=== PATIENT | female | born 1940 | race Caucasian/White ===

== ENCOUNTER 2020-12-21 12:49 | Inpatient (IN) ==
[2020-12-21 11:41] LABS: BASOPHILS # (AUTO) 0.1 X10^3/uL (0.0-0.1); BASOPHILS % (AUTO) 0.9 % (0.2-1.0); EOSINOPHILS # (AUTO) 0.1 x10^3/uL (0.0-0.2); HEMOGLOBIN 11.9 g/dL (12.0-16.0); LYMPHOCYTES % (AUTO) 24.8 % (21.0-51.0); MEAN CORPUSCULAR HEMOGLOBIN 26.1 pg (27.0-34.0); MEAN CORPUSCULAR HGB CONC 32.3 g/dL (33.0-35.0); MEAN CORPUSCULAR VOLUME 80.8 fL (80.0-100.0); MEAN PLATELET VOLUME 9.6 fL (7.4-11.0); MONOCYTES # (AUTO) 0.8 x10^3/uL (0.3-0.8); MONOCYTES % (AUTO) 9.4 % (0.0-13.0); NEUTROPHILS # (AUTO) 5.2 x10^3/uL (2.2-4.8); NEUTROPHILS % (AUTO) 63.9 % (42.0-75.0); PLATELET COUNT 250 X10^3/uL (150.0-450.0); RED BLOOD COUNT 4.58 X10^6/uL (3.5-5.4); RED CELL DISTRIBUTION WIDTH 15.7 % (11.6-16.5); WHITE BLOOD COUNT 8.1 X10^3/uL (3.6-10.0)
[2020-12-21 11:59] LABS: ALANINE AMINOTRANSFERASE 10 Units/L (12-78); ALBUMIN 2.8 g/dL (3.4-5.0); ALKALINE PHOSPHATASE 106 Units/L (46-116); ASPARTATE AMINO TRANSFERASE 11 Units/L (15-37); BLOOD UREA NITROGEN 26 mg/dL (7-18); CALCIUM 8.7 mg/dL (8.5-10.1); CARBON DIOXIDE 33.8 mmol/L (21-32); CHLORIDE 96 mmol/L (98-107); COR CA(FOR HYPOALB) 9.7 mg/dL (8.5-10.1); COR NA(FOR HYPERGLY) 143 mmol/L (136-145); SODIUM 136 mmol/L (136-145); TOTAL PROTEIN 7.6 g/dL (6.4-8.2); eGFR NON BLACK RACES 57 (>60)
--- NOTE | 2020-12-21 13:23 | DR.PEXTPAI ---
HPI Time seen Time Seen by Provider: 12/21/20 13:11 PCP Primary Care Physician: HIMA Complaint/Symptoms Chief Complaint:: PT. WAS BROUGHT FROM THE PRE OP STAFF NURSE Libby JUNIOR RN. PT. WAS HERE AN OUT PATIENT FOR VASCULAR SURGERY TO RIGHT LEG. DR. RABAGO ORDERED CBC AND CMP PRIOR TO PROCEDURE AND PT. HAD ABNORMAL LABS SO PT. WAS SENT TO THE ER FOR FURTHER EVALUATION. PT. HAS A WOUND TO RIGHT HEEL. THE BACK PART OF PT'S RIGHT GREAT TOE IS NECROTIC. PT. HAS SCATTERED AREAS OF CONCERN NOTED TO RIGHT FOOT. PT. C/O BILATERAL FOOT PAIN. PT. HAD A PROCEDURE TO RIGHT LEG PER DR. RABAGO ON 09/21/20. PAINTER SKI EDGE STATES PT. WILL NOT LEAVE A DRESSING TO RIGHT FOOT AND WILL NOT LEAVE WOUND ALONE. PAINTER SKI EDGE STATES PT'S MOBILTY HAS DECLINED SIGNIFICANTLY WITHIN THE PAST 2 DAYS. PT. CAN USUALLY WALK WITH A WALKER AT HOME BUT HAS BEEN HAVING DIFFICULTY. Source History Provided: Friend and Other Mode of arrival Mode of Arrival: Wheelchair Timing Onset of Chief Complaint: 09/21/20 PMH Past Surgical History Past Surgical History: Yes Past Surgical History Comment: VASCULAR SURGERY TO RIGHT LEG, RIGHT HIP Family History History of Family Medical Conditions: Yes Social Does patient currently use any type of tobacco product: Yes Have you used tobacco products in the last 12 months: Yes Type of Tobacco Use: Cigarettes Does any household member use tobacco: Yes Alcohol Use: None Vaccines Pneumococcal Vaccine Every 5 Yrs: No infectious screening In the last 2 months have you had wt loss of >10#?: NO Have you had fever, night sweats or hemotysis?: No Have you traveled outside the country in the last 6 months?: No Isolation: Standard PE Vital Signs Vitals: Temperature 98.3 F Pulse Rate [Right Brachial] 71 Pulse Rate 75 Respiratory Rate 16 Blood Pressure [Left Arm] 142/63 Blood Pressure 207/88 O2 Sat by Pulse Oximetry 97 ROR Labs Reviewed Result Diagrams: 12/21/20 13:07 12/21/20 13:07 Laboratory: 12/21/20 13:55 Foot - Right Wound Gram Stain - Final WBC 8.0 X10^3/uL (3.6-10.0) 12/21/20 13:07 RBC 4.45 X10^6/uL (3.5-5.4) 12/21/20 13:07 Hgb 11.8 g/dL (12.0-16.0) L 12/21/20 13:07 Hct 36.3 % (36.0-47.0) 12/21/20 13:07 MCV 81.6 fL (80.0-100.0) 12/21/20 13:07 MCH 26.4 pg (27.0-34.0) L 12/21/20 13:07 MCHC 32.4 g/dL (33.0-35.0) L 12/21/20 13:07 RDW 15.2 % (11.6-16.5) 12/21/20 13:07 Plt Count 249 X10^3/uL (150.0-450.0) 12/21/20 13:07 MPV 10.3 fL (7.4-11.0) 12/21/20 13:07 Neut % (Auto) 64.9 % (42.0-75.0) 12/21/20 13:07 Lymph % (Auto) 24.7 % (21.0-51.0) 12/21/20 13:07 [place] % (Auto) 9.1 % (0.0-13.0) 12/21/20 13:07 Eos % (Auto) 0.9 % (0.9-2.9) 12/21/20 13:07 Baso % (Auto) 0.4 % (0.2-1.0) 12/21/20 13:07 Neut # (Auto) 5.2 x10^3/uL (2.2-4.8) H 12/21/20 13:07 Lymph # (Auto) 2.0 X10^3/uL (1.3-2.9) 12/21/20 13:07 [place] # (Auto) 0.7 x10^3/uL (0.3-0.8) 12/21/20 13:07 Eos # (Auto) 0.1 x10^3/uL (0.0-0.2) 12/21/20 13:07 Baso # (Auto) 0.0 X10^3/uL (0.0-0.1) 12/21/20 13:07 Absolute Nucleated RBC 0.3 /100WBC 12/21/20 13:07 Sodium 136 mmol/L (136-145) 12/21/20 13:07 Corrected Sodium 143 mmol/L (136-145) 12/21/20 13:07 Potassium 2.5 mmol/L (3.5-5.1) L* 12/21/20 13:07 Chloride 96 mmol/L (98-107) L 12/21/20 13:07 Carbon Dioxide 33.9 mmol/L (21-32) H 12/21/20 13:07 BUN 24 mg/dL (7-18) H 12/21/20 13:07 Creatinine 1.00 mg/dL (0.55-1.02) 12/21/20 13:07 Est GFR (MDRD) Af Amer > 60 (>60) 12/21/20 13:07 Est GFR (MDRD) Non-Af 57 (>60) L 12/21/20 13:07 Glucose 389 mg/dL (65-99) H 12/21/20 13:07 POC Glucose (mg/dL) 352 mg/dL (65-99) H 12/21/20 13:13 Calcium 8.6 mg/dL (8.5-10.1) 12/21/20 13:07 Corrected Calcium 9.6 mg/dL (8.5-10.1) 12/21/20 13:07 Total Bilirubin 0.70 mg/dL (0.2-1.0) 12/21/20 13:07 AST 11 Units/L (15-37) L 12/21/20 13:07 ALT 11 Units/L (12-78) L 12/21/20 13:07 Alkaline Phosphatase 107 Units/L (46-116) 12/21/20 13:07 Creatine Kinase 89 Units/L (26-192) 12/21/20 13:07 CK-MB (CK-2) 1.1 ng/mL (0-4.0) 12/21/20 13:07 CK/CKMB % Calc 1.2 % (<4) 12/21/20 13:07 Troponin I < 0.02 ng/mL (0-1.5) 12/21/20 13:07 Total Protein 7.5 g/dL (6.4-8.2) 12/21/20 13:07 Albumin 2.8 g/dL (3.4-5.0) L 12/21/20 13:07 Globulin 4.7 g/dL (2.5-4.5) H 12/21/20 13:07 Albumin/Globulin Ratio 0.6 Ratio (1.1-2.1) L 12/21/20 13:07 Specimen Type Random urine 12/21/20 14:55 Urine Color Straw (YELLOW) 12/21/20 14:55 Urine Appearance Cloudy (CLEAR) 12/21/20 14:55 Urine pH 7.0 (5.0 - 8.0) 12/21/20 14:55 Ur Specific [place] 1.010 (1.000-1.030) 12/21/20 14:55 Urine Protein 3+ (NEGATIVE) 12/21/20 14:55 Urine Glucose (UA) 4+ (NEGATIVE) 12/21/20 14:55 Urine Ketones Negative (NEGATIVE) 12/21/20 14:55 Urine Occult Blood 3+ (NEGATIVE) 12/21/20 14:55 Urine Nitrite Negative (NEGATIVE) 12/21/20 14:55 Urine Bilirubin Negative (NEGATIVE) 12/21/20 14:55 Urine Urobilinogen Normal (NORMAL) 12/21/20 14:55 Ur Leukocyte Esterase 3+ (NEGATIVE) 12/21/20 14:55 Urine RBC 5-10 /HPF (0-3) A 12/21/20 14:55 Urine WBC Tntc /HPF (0-5) A 12/21/20 14:55 Ur Squamous Epith Cells Moderate /HPF (NEGATIVE) 12/21/20 14:55 Urine Bacteria Trace /HPF (NEGATIVE) 12/21/20 14:55 Ur Culture Indicated? No/not indicated 12/21/20 14:55 Acetone, Semi-Quant Negative (NEGATIVE) 12/21/20 13:07 Opioid Opioid Risk Tool Age (Nitin box if 16-45): No Total: 0 Total Score Risk Category: Low Risk Copyright: Tariq GALAN predicting aberrant behaviors Instructions Forms: Precautions for COVID19 Patient Portal Social Distancing
[2020-12-21] MEDS ORDERED: KLOR-CON PO ONE (13:33)
[2020-12-21] MEDS ORDERED: KLOR-CON ONE (13:38)
[2020-12-21] MEDS ORDERED: NS 1000 ML 1,000 ML IV SCH (14:00)
[2020-12-21] MEDS ORDERED: NS 1000 ML 1,000 ML ONE (14:01)
[2020-12-21 14:06] LABS: BASOPHILS % (AUTO) 0.4 % (0.2-1.0); EOSINOPHILS # (AUTO) 0.1 x10^3/uL (0.0-0.2); EOSINOPHILS % (AUTO) 0.9 % (0.9-2.9); HEMATOCRIT 36.3 % (36.0-47.0); HEMOGLOBIN 11.8 g/dL (12.0-16.0); LYMPHOCYTES % (AUTO) 24.7 % (21.0-51.0); MEAN CORPUSCULAR HEMOGLOBIN 26.4 pg (27.0-34.0); MEAN CORPUSCULAR HGB CONC 32.4 g/dL (33.0-35.0); MEAN CORPUSCULAR VOLUME 81.6 fL (80.0-100.0); MEAN PLATELET VOLUME 10.3 fL (7.4-11.0); MONOCYTES # (AUTO) 0.7 x10^3/uL (0.3-0.8); MONOCYTES % (AUTO) 9.1 % (0.0-13.0); NEUTROPHILS # (AUTO) 5.2 x10^3/uL (2.2-4.8); NEUTROPHILS % (AUTO) 64.9 % (42.0-75.0); PLATELET COUNT 249 X10^3/uL (150.0-450.0); RED BLOOD COUNT 4.45 X10^6/uL (3.5-5.4); RED CELL DISTRIBUTION WIDTH 15.2 % (11.6-16.5)
[2020-12-21 14:15] LABS: ALANINE AMINOTRANSFERASE 11 Units/L (12-78); ALBUMIN 2.8 g/dL (3.4-5.0); ALKALINE PHOSPHATASE 107 Units/L (46-116); ASPARTATE AMINO TRANSFERASE 11 Units/L (15-37); BLOOD UREA NITROGEN 24 mg/dL (7-18); CALCIUM 8.6 mg/dL (8.5-10.1); CARBON DIOXIDE 33.9 mmol/L (21-32); CHLORIDE 96 mmol/L (98-107); CKMB % 1.2 % (<4); COR CA(FOR HYPOALB) 9.6 mg/dL (8.5-10.1); COR NA(FOR HYPERGLY) 143 mmol/L (136-145); CREATINE KINASE 89 Units/L (26-192); CREATINE KINASE MB 1.1 ng/mL (0-4.0); SODIUM 136 mmol/L (136-145); TOTAL PROTEIN 7.5 g/dL (6.4-8.2); TROPONIN I < 0.02 ng/mL (0-1.5); eGFR NON BLACK RACES 57 (>60)
--- NOTE | 2020-12-21 14:42 | RAD ---
HISTORYSOBSTUDYCHEST, 1 VIEWCOMPARISONApril 22ndTECHNIQUEPortable chest x-rayFINDINGSHeart size is normal. No mediastinal widening. Lungs are equally expanded and clear as are the pleural spaces. No free air or pneumothorax noted. Stable calcified nodule is seen lateral to the left heart border measuring 6 mm. Degenerative changes of the bilateral glenohumeral and AC joints are observed and high-riding humeral heads may indicate chronic rotator cuff tears.IMPRESSIONNo acute radiographic abnormalities of the chestElectronically signed by: KELSEY JUNIOR (Dec 21, 2020 14:43:39)
[2020-12-21 15:30] LABS: BILIRUBIN,URINE NEGATIVE (NEGATIVE); BLOOD/HEMOGLOBIN,URINE 3+ (NEGATIVE); GLUCOSE, URINE 4+ (NEGATIVE); KETONES,URINE NEGATIVE (NEGATIVE); LEUKOCYTE ESTERASE ,URINE 3+ (NEGATIVE); NITRITES,URINE NEGATIVE (NEGATIVE); PROTEIN,URINE 3+ (NEGATIVE); UROBILINOGEN,URINE NORMAL (NORMAL)
[2020-12-21 15:35] LABS: APPEARANCE,URINE CLOUDY (CLEAR); COLOR,URINE STRAW (YELLOW)
[2020-12-21 15:43] LABS: BACTERIA,URINE TRACE /HPF (NEGATIVE); SQUAMOUS EPITHELIAL CELL,UR MODERATE /HPF (NEGATIVE)
[2020-12-21] MEDS ORDERED: ROCEPHIN 1 GRAM IV PREMIX 1 G/50 ML IV.SOLN. IV SCH (17:00)
[2020-12-21] MEDS: NS 1000 ML 1,000 ML IV SCH (17:08)
[2020-12-21] MEDS: HumuLIN R SUBCUT PRN ×2 (17:10→20:00)
[2020-12-21] MEDS ORDERED: POTASSIUM CHL 60 MEQ/NS 0.45% 500 ML IV PRN (17:15)
[2020-12-21] MEDS ORDERED: K-DUR TAB 20 MEQ PO PRN (17:15)
[2020-12-21] MEDS ORDERED: K-RIDER 10 MEQ/NS 100 ML 10 MEQ/100 ML BAG IV PRN (17:15)
[2020-12-21] MEDS ORDERED: MICRO K EXTEN CAP 10 MEQ PO PRN (17:15)
[2020-12-21] MEDS ORDERED: POTASSIUM CHLORIDE LIQ 20 MEQ UDC PO PRN (17:15)
[2020-12-21] MEDS: KLOR-CON PO PRN (18:04)
[2020-12-22] MEDS: HumuLIN R SUBCUT PRN ×2 (05:57→12:00)
[2020-12-22] MEDS: NS 1000 ML 1,000 ML IV SCH ×3 (06:00→21:25)
[2020-12-22 06:16] LABS: BASOPHILS # (AUTO) 0.1 X10^3/uL (0.0-0.1); BASOPHILS % (AUTO) 0.6 % (0.2-1.0); EOSINOPHILS % (AUTO) 0.3 % (0.9-2.9); HEMATOCRIT 33.7 % (36.0-47.0); HEMOGLOBIN 10.9 g/dL (12.0-16.0); LYMPHOCYTES # (AUTO) 2.2 X10^3/uL (1.3-2.9); LYMPHOCYTES % (AUTO) 21.5 % (21.0-51.0); MEAN CORPUSCULAR HEMOGLOBIN 26.3 pg (27.0-34.0); MEAN CORPUSCULAR HGB CONC 32.4 g/dL (33.0-35.0); MEAN CORPUSCULAR VOLUME 81.1 fL (80.0-100.0); MONOCYTES # (AUTO) 0.9 x10^3/uL (0.3-0.8); MONOCYTES % (AUTO) 8.7 % (0.0-13.0); NEUTROPHILS # (AUTO) 6.9 x10^3/uL (2.2-4.8); NEUTROPHILS % (AUTO) 68.9 % (42.0-75.0); PLATELET COUNT 229 X10^3/uL (150.0-450.0); RED BLOOD COUNT 4.16 X10^6/uL (3.5-5.4); RED CELL DISTRIBUTION WIDTH 15.4 % (11.6-16.5)
[2020-12-22 06:48] LABS: ALBUMIN 2.1 g/dL (3.4-5.0); ALKALINE PHOSPHATASE 83 Units/L (46-116); ASPARTATE AMINO TRANSFERASE 13 Units/L (15-37); BLOOD UREA NITROGEN 14 mg/dL (7-18); CALCIUM 8.1 mg/dL (8.5-10.1); CARBON DIOXIDE 31.2 mmol/L (21-32); CHLORIDE 103 mmol/L (98-107); COR CA(FOR HYPOALB) 9.6 mg/dL (8.5-10.1); COR NA(FOR HYPERGLY) 142 mmol/L (136-145); CREATININE 0.72 mg/dL (0.55-1.02); SODIUM 140 mmol/L (136-145); TOTAL PROTEIN 6.2 g/dL (6.4-8.2); eGFR NON BLACK RACES > 60 (>60)
[2020-12-22 06:59] LABS: ALANINE AMINOTRANSFERASE 8 Units/L (12-78)
--- NOTE | 2020-12-22 07:56 | DR.CONSULT ---
CONSULT Consultation for Day of: Date: 12/21/20 Chief Complaint Chief Complaint: Hypokalemia Hyperglycemia Allergies Allergies Allergy/AdvReac Type Severity Reaction Status Date / Time No Known Drug Allergies Allergy Verified 09/21/20 10:53 History of Present Illness History of Present Illness: Pt is a 80 year old female past medical history of Hypertension, DMT2, CAD admitted for hypokalemia and hyperglycemia. Pt was scheduled for outpatient vascular surgery of the right foot on areas of what appears to be necrosis/gangrene and had pre-op labs that were abnormal. Labs: Wbc 8, Hgb 11.8, Plt 249, Na 136, K 2.5, Creatinine 1.00, Glucose 389, Magnesium 2.2, Troponin negative, COVID19 negative, Acetone negative, UA: Wbc TNTC, Urine/Blood culture pending, CXR: No acute radiographic abnormalities of the chest. Will start patient on IVF NS, replete potassium per protocol, SSI, restart home medications. Pt was started on Rocephin for possible UTI. Will con tinue to monitor and follow up labs in the morning. Past Medical History Past Medical History: Arthritis, Coronary Artery Disease, Diabetes, Dyslip idemia, GERD, Hypertension and MT Past Surgical History Surgical History: Other Family History Family Medical History: Diabetes Mellitus Social History Does patient currently use any type of tobacco product: Yes Have you used tobacco products in the last 12 months: Yes Type of Tobacco Use: Cigarettes Does any household member use tobacco: No Alcohol Use: None Drug Use: None Medications Home Medications: No Known Drug Allergies Allergy (Verified 09/21/20 10:53) CONTINUE taking the following medications aspirin 81 mg PO DAILY 12/21/20 [History] Review of Systems Constitutional: No Symptoms Reported Eyes: No Symptoms Reported ENT: No Symptoms Reported Respiratory: No Symptoms Reported Cardiovascular: No Symptoms Reported Gastrointestinal: No Symptoms Reported Genitourinary: No Symptoms Reported Musculoskeletal: Leg Pain (RLE) Skin: Wound (Right foot and toes) Neurological: No Symptoms Reported Physical Exam Vital Signs: Temperature 98.3 F Pulse Rate [Right Brachial] 79 Pulse Rate 75 Respiratory Rate 20 Blood Pressure [Right Arm] 115/56 Blood Pressure [Left Arm] 142/63 Blood Pressure 207/88 O2 Sat by Pulse Oximetry 96 Oriented: Normal Eyes: Normal Ear: Normal Nose: Normal Throat: Normal Respiratory: Clear Throughout Cardiovascular: Normal : Normal Auscultation: Bowel Sounds: Normal Tenderness: Normal Skin: Wound (gangrene right toe) Musculoskeletal: Normal Psychiatric: Normal Mood Description: Calm Speech Pattern: Clear Plan Plan: #Hypokalemia:Replete per protocol #Hyperglycemia:FSBG, SSI #UTI:Rocephin, urine culture pending #Gangrene:Followed by Vascular-Dr Taylor
[2020-12-22] MEDS ORDERED: ROCEPHIN VIAL 1 GRAM 1 G in NS 100 ML IV + SPIKE MINIBAG* 100 ML IV SCH (09:00)
[2020-12-22] MEDS: K-DUR TAB 20 MEQ PO SCH ×2 (09:19→21:25)
--- NOTE | 2020-12-22 10:15 | PCM.PROG ---
Progress Note Progress Note for Day of Date of Exam: 12/22/20 Subjective Subjective: Pt is a 80 year old female past medical history of Hypertension, DMT2, CAD admitted for right foot gangrene, hypokalemia, and hyperglycemia. This morning pt is resting comfortably in bed. No acute concerns overnight. Labs: Wbc 10, Hgb 10.9, Plt 229, Na 140, K 2.5>3.2>2.6, Creatinine 0.72, Glucose 165, UA:Wbc TNTC, Urine/Blood culture pending. Treatment course includes: IVF NS@80ml/h, replete potassium per protocol, SSI, Lantus, Rocephin, and home medications were resumed. Will start patient on KCl 40mEq BID. Vascular surgery: ordered lower extremity arterial imaging for evaluation and possible surgical intervention tomorrow based on results. NPO after midnight. Will continue to monitor and follow up labs in the morning. Past Medical Family Social History Past Med/Fam/Surg Hx: No changes since H&P Allergies: Allergies No Known Drug Allergies Allergy (Verified 09/21/20 10:53) Review of Systems ROS: No change since H&P Vital Signs and I&O's Vital Signs: Temperature 98.0 F Pulse Rate [Right Brachial] 81 Pulse Rate 75 Respiratory Rate 20 Blood Pressure [Right Arm] 140/60 Blood Pressure [Left Arm] 142/63 Blood Pressure 207/88 O2 Sat by Pulse Oximetry 94 Intake and Output: Intake & Output 12/19/20 12/20/20 12/21/20 12/22/20 23:59 23:59 23:59 23:59 Intake Total 600 / 600 400 / 400 Balance 600 / 600 400 / 400 Physical Exam Oriented: Normal Eyes: Normal Ear: Normal Nose: Normal Throat: Normal Respiratory: Normal Cardiovascular: Normal : Normal Auscultation: Bowel Sounds: Normal Tenderness: Normal Skin: Wound (gangrene right toe) Musculoskeletal: Normal Psychiatric: Normal Mood Description: Calm Speech Pattern: Clear Laboratory and Diagnostics Result Diagrams: 12/22/20 05:27 12/22/20 05:27 Labs: 12/21/20 13:55 Foot - Right Wound Gram Stain - Final 12/21/20 13:55 Foot - Right Wound Culture - Preliminary Laboratory WBC 10.0 X10^3/uL (3.6-10.0) 12/22/20 05:27 RBC 4.16 X10^6/uL (3.5-5.4) 12/22/20 05:27 Hgb 10.9 g/dL (12.0-16.0) L 12/22/20 05:27 Hct 33.7 % (36.0-47.0) L 12/22/20 05:27 MCV 81.1 fL (80.0-100.0) 12/22/20 05:27 MCH 26.3 pg (27.0-34.0) L 12/22/20 05:27 MCHC 32.4 g/dL (33.0-35.0) L 12/22/20 05:27 RDW 15.4 % (11.6-16.5) 12/22/20 05:27 Plt Count 229 X10^3/uL (150.0-450.0) 12/22/20 05:27 MPV 10.0 fL (7.4-11.0) 12/22/20 05:27 Neut % (Auto) 68.9 % (42.0-75.0) 12/22/20 05:27 Lymph % (Auto) 21.5 % (21.0-51.0) 12/22/20 05:27 [place] % (Auto) 8.7 % (0.0-13.0) 12/22/20 05:27 Eos % (Auto) 0.3 % (0.9-2.9) L 12/22/20 05:27 Baso % (Auto) 0.6 % (0.2-1.0) 12/22/20 05:27 Neut # (Auto) 6.9 x10^3/uL (2.2-4.8) H 12/22/20 05:27 Lymph # (Auto) 2.2 X10^3/uL (1.3-2.9) 12/22/20 05:27 [place] # (Auto) 0.9 x10^3/uL (0.3-0.8) H 12/22/20 05:27 Eos # (Auto) 0.0 x10^3/uL (0.0-0.2) 12/22/20 05:27 Baso # (Auto) 0.1 X10^3/uL (0.0-0.1) 12/22/20 05:27 Absolute Nucleated RBC 0.1 /100WBC 12/22/20 05:27 Sodium 140 mmol/L (136-145) 12/22/20 05:27 Corrected Sodium 142 mmol/L (136-145) 12/22/20 05:27 Potassium 2.6 mmol/L (3.5-5.1) L* 12/22/20 05:27 Chloride 103 mmol/L (98-107) 12/22/20 05:27 Carbon Dioxide 31.2 mmol/L (21-32) 12/22/20 05:27 BUN 14 mg/dL (7-18) 12/22/20 05:27 Creatinine 0.72 mg/dL (0.55-1.02) 12/22/20 05:27 Est GFR (MDRD) Af Amer > 60 (>60) 12/22/20 05:27 Est GFR (MDRD) Non-Af > 60 (>60) 12/22/20 05:27 Glucose 165 mg/dL (65-99) H 12/22/20 05:27 POC Glucose (mg/dL) 180 mg/dL (65-99) H 12/22/20 05:54 Calcium 8.1 mg/dL (8.5-10.1) L 12/22/20 05:27 Corrected Calcium 9.6 mg/dL (8.5-10.1) 12/22/20 05:27 Magnesium 2.2 mg/dL (1.7-2.9) 12/21/20 13:07 Total Bilirubin 0.50 mg/dL (0.2-1.0) 12/22/20 05:27 AST 13 Units/L (15-37) L 12/22/20 05:27 ALT 8 Units/L (12-78) L 12/22/20 05:27 Alkaline Phosphatase 83 Units/L (46-116) 12/22/20 05:27 Creatine Kinase 89 Units/L (26-192) 12/21/20 13:07 CK-MB (CK-2) 1.1 ng/mL (0-4.0) 12/21/20 13:07 CK/CKMB % Calc 1.2 % (<4) 12/21/20 13:07 Troponin I < 0.02 ng/mL (0-1.5) 12/21/20 13:07 Total Protein 6.2 g/dL (6.4-8.2) L 12/22/20 05:27 Albumin 2.1 g/dL (3.4-5.0) L 12/22/20 05:27 Globulin 4.1 g/dL (2.5-4.5) 12/22/20 05:27 Albumin/Globulin Ratio 0.5 Ratio (1.1-2.1) L 12/22/20 05:27 Specimen Type Random urine 12/21/20 14:55 Urine Color Straw (YELLOW) 12/21/20 14:55 Urine Appearance Cloudy (CLEAR) 12/21/20 14:55 Urine pH 7.0 (5.0 - 8.0) 12/21/20 14:55 Ur Specific [place] 1.010 (1.000-1.030) 12/21/20 14:55 Urine Protein 3+ (NEGATIVE) 12/21/20 14:55 Urine Glucose (UA) 4+ (NEGATIVE) 12/21/20 14:55 Urine Ketones Negative (NEGATIVE) 12/21/20 14:55 Urine Occult Blood 3+ (NEGATIVE) 12/21/20 14:55 Urine Nitrite Negative (NEGATIVE) 12/21/20 14:55 Urine Bilirubin Negative (NEGATIVE) 12/21/20 14:55 Urine Urobilinogen Normal (NORMAL) 12/21/20 14:55 Ur Leukocyte Esterase 3+ (NEGATIVE) 12/21/20 14:55 Urine RBC 5-10 /HPF (0-3) A 12/21/20 14:55 Urine WBC Tntc /HPF (0-5) A 12/21/20 14:55 Ur Squamous Epith Cells Moderate /HPF (NEGATIVE) 12/21/20 14:55 Urine Bacteria Trace /HPF (NEGATIVE) 12/21/20 14:55 Ur Culture Indicated? No/not indicated 12/21/20 14:55 Acetone, Semi-Quant Negative (NEGATIVE) 12/21/20 13:07 Plan (1) Critical ischemia of lower extremity: Status: Chronic Plan: Vascular surgery following (2) Hypokalemia: Status: Acute Plan: replete per protocol KCl 40mEq BID (3) Hyperglycemia: Status: Acute Plan: restart Lantus SSI (4) Gangrene: Status: Acute (5) UTI (urinary tract infection): Status: Acute Plan: Rocephin, Urine culture pending (6) Cellulitis of right foot: Status: Acute
[2020-12-22] MEDS: LANTUS SC SCH (11:00)
[2020-12-22] MEDS: NORVASC TAB 5 MG PO SCH (11:01)
[2020-12-22] MEDS: PERCOCET TAB 5/325 MG PO PRN (11:50)
[2020-12-22] MEDS: TYLENOL 325 MG TAB PO PRN ×2 (12:33→23:45)
--- NOTE | 2020-12-22 12:37 | NOTE.SOAP ---
Soap Note Note for Day of Date of Exam: 12/22/20 Subjective Data Subjective Data: 80-year-old female with significant history of peripheral vascular disease. Known to have nonhealing wounds of the right foot and heel with ankle brachial index on the right of 0.15. Ankle brachial index on the left is 0.29. Status post atherectomy of the right superficial femoral artery and popliteal artery total occlusion as well as atherectomy of the tibial peroneal trunk with drug-coated balloon angioplasty of all these and angioplasty of the distal peroneal artery. Was scheduled to have intervention of the left leg which is known to have a patent left femoral popliteal bypass with occlusion of the popliteal artery and poor runoff . In the preoperative evaluation the patient presented with a blood sugar of greater than 600 and a potassium of 2.4. Patient has been admitted by the internal medicine service for correction of these prior to intervention of the left leg. Right heel wound is stable measuring approximately 4 x 3.5 x 1 cm. Still complains of right leg pain. I am concerned about possible occlusion of the operative intervention of the right leg which has previously been carried out. Objective Data Temperature: 101.5 F Pulse Rate: 82 Respiratory Rate: 18 Blood Pressure: 154/67 O2 Sat by Pulse Oximetry: 96 Objective Data: Wound unchanged of the right foot. Right foot is warm. Potassium is still less than 3 despite supplementation. Blood sugars under better control. Temperature equals 101.3. Will need all of this corrected prior to the intervention of the left leg. Assessment Assessment: Bilateral significant basher disease. Hypokalemia. Elevated blood sugars. Plan Plan: Internal medicine services correcting the blood sugars and potassium. On the good pulmonary toilet. Will obtain ultrasound of the right leg to make sure the intervention of that leg is still patent. Will need intervention the left leg in the near future.
[2020-12-22 13:05] VITALS: BMI 28.5
--- NOTE | 2020-12-22 13:06 | VAS ---
LOWER EXT ARTERIAL duplex ultrasoundHISTORY:HX ATHRECTOMY RIGHT LEG, gangrene right footComparison:NoneTechnique:Multiple bautista scale and color flow Doppler images of the right lower extremity arterial system were obtained. Interrogation of the common femoral artery, superficial femoral artery, popliteal artery, and tibial arteries was performed.Findings:Biphasic waveforms are seen in the right lower extremity, except for monophasic waveform in the right DPA and distal right femoral artery. No flow is seen in distal right femoral artery.Right extremity:Common femoral : 46 cm/sSuperficial femoral proximal: 36 cm/sSuperficial femoral mid: 13 cm/sSuperficial femoral distal : No flowPopliteal : 24 cm/s collaterals are seen in this regionPosterior tibial : No flow identifiedAnterior tibial /dorsalis pedis: No flow identifiedIMPRESSION:Possible distal SFA occlusion with collateral vasculature in the popliteal region. No flow is seen in the ankle arteries.[email or web address].ncbi.nlm.nih.gov/pubmed/[email or web address] signed by: Azar Sellers (Nov 13:04:13)
[2020-12-22] MEDS: NEURONTIN CAP 100 MG PO SCH ×2 (14:16→21:25)
[2020-12-22] MEDS ORDERED: K-DUR TAB 20 MEQ PO ONE (14:42)
[2020-12-22] MEDS: POTASSIUM CHL 40 MEQ/NS 0.45% 500 ML IV PRN (15:16)
[2020-12-22] MEDS: REQUIP PO SCH (21:29)
[2020-12-23 05:25] LABS: BASOPHILS # (AUTO) 0.1 X10^3/uL (0.0-0.1); BASOPHILS % (AUTO) 0.5 % (0.2-1.0); HEMATOCRIT 38.7 % (36.0-47.0); HEMOGLOBIN 12.6 g/dL (12.0-16.0); LYMPHOCYTES # (AUTO) 2.3 X10^3/uL (1.3-2.9); LYMPHOCYTES % (AUTO) 18.8 % (21.0-51.0); MEAN CORPUSCULAR HEMOGLOBIN 26.4 pg (27.0-34.0); MEAN CORPUSCULAR HGB CONC 32.5 g/dL (33.0-35.0); MEAN CORPUSCULAR VOLUME 81.1 fL (80.0-100.0); MEAN PLATELET VOLUME 10.3 fL (7.4-11.0); MONOCYTES # (AUTO) 0.8 x10^3/uL (0.3-0.8); MONOCYTES % (AUTO) 6.5 % (0.0-13.0); NEUTROPHILS # (AUTO) 9.1 x10^3/uL (2.2-4.8); NEUTROPHILS % (AUTO) 74.2 % (42.0-75.0); PLATELET COUNT 205 X10^3/uL (150.0-450.0); RED BLOOD COUNT 4.78 X10^6/uL (3.5-5.4); RED CELL DISTRIBUTION WIDTH 15.9 % (11.6-16.5); WHITE BLOOD COUNT 12.2 X10^3/uL (3.6-10.0)
[2020-12-23 05:58] LABS: ALANINE AMINOTRANSFERASE 7 Units/L (12-78); ALBUMIN 2.3 g/dL (3.4-5.0); ALKALINE PHOSPHATASE 93 Units/L (46-116); ASPARTATE AMINO TRANSFERASE 18 Units/L (15-37); BLOOD UREA NITROGEN 15 mg/dL (7-18); CALCIUM 8.3 mg/dL (8.5-10.1); CARBON DIOXIDE 25.4 mmol/L (21-32); CHLORIDE 103 mmol/L (98-107); COR CA(FOR HYPOALB) 9.7 mg/dL (8.5-10.1); CREATININE 0.89 mg/dL (0.55-1.02); SODIUM 136 mmol/L (136-145); TOTAL PROTEIN 7.1 g/dL (6.4-8.2); eGFR NON BLACK RACES > 60 (>60)
[2020-12-23] MEDS: NEURONTIN CAP 100 MG PO SCH ×3 (06:10→21:00)
[2020-12-23] MEDS ORDERED: SYNTHROID 25 mcg TAB PO SCH (06:30)
--- NOTE | 2020-12-23 08:27 | PCM.PROG ---
Progress Note Progress Note for Day of Date of Exam: 12/23/20 Subjective Subjective: Pt is a 80 year old female past medical history of PVD, Hypertension, DMT2, CAD, admitted for cellulitis, hypokalemia, and hyperglycemia. Pt has non-healing wounds on right foot and was scheduled for surgical intervention of left femoral popliteal bypass with occlusion of the popliteal artery by vascular surgery. This morning patient resting comfortably in bed. She has had fevers yesterday afternoon and overnight. Labs: Wbc 12.2, Hgb 12.6, Plt 205, Na 136, K 4.7, Creatinine 0.89, Glucose 95, UA: Wbc TNTC, Urine culture pending(collected after antibiotics already started), Blood culture NGTD, Wound culture gram negative rods and gram positive cocci. Arterial studies of left lower extremity: Possible distal SFA occlusion with collateral vasculature in the popliteal region. No flow is seen in the ankle arteries. Treatment course includes: ADA diet, IVF NS@80ml/h, replete potassium per protocol, SSI, Lantus, Rocephin, KCL 40mg BID. Will get CXR to evaluate fever, yesterday respiratory panel repeated negative for COVID-19, RSV, and Flu. Change antibiotics to IV Vancomycin and Zosyn. Potassium wnl, will discontinue PO KCL. Will continue to monitor and follow up labs/imaging in the morning. Past Medical Family Social History Past Med/Fam/Surg Hx: No changes since H&P Allergies: Allergies No Known Drug Allergies Allergy (Verified 09/21/20 10:53) Review of Systems ROS: No change since H&P Vital Signs and I&O's Vital Signs: Temperature 101 F Pulse Rate [Right Brachial] 80 Pulse Rate 82 Respiratory Rate 22 Blood Pressure [Right Arm] 107/56 Blood Pressure [Left Arm] 142/63 Blood Pressure 154/67 O2 Sat by Pulse Oximetry 96 Intake and Output: Intake & Output 12/20/20 12/21/20 12/22/20 12/23/20 23:59 23:59 23:59 23:59 Intake Total 600 / 600 4455 / 4455 383 / 383 Balance 600 / 600 4455 / 4455 383 / 383 Physical Exam Oriented: Normal Eyes: Normal Ear: Normal Nose: Normal Throat: Normal Respiratory: Normal Cardiovascular: Normal : Normal Auscultation: Bowel Sounds: Normal Tenderness: Normal Skin: Wound (gangrene right toe) Musculoskeletal: Normal Psychiatric: Normal Mood Description: Calm Speech Pattern: Unclear and Inappropriate Laboratory and Diagnostics Result Diagrams: 12/23/20 04:38 12/23/20 04:38 Labs: 12/21/20 13:55 Foot - Right Wound Gram Stain - Final 12/21/20 13:55 Foot - Right Wound Culture - Preliminary Laboratory WBC 12.2 X10^3/uL (3.6-10.0) H 12/23/20 04:38 RBC 4.78 X10^6/uL (3.5-5.4) 12/23/20 04:38 Hgb 12.6 g/dL (12.0-16.0) 12/23/20 04:38 Hct 38.7 % (36.0-47.0) 12/23/20 04:38 MCV 81.1 fL (80.0-100.0) 12/23/20 04:38 MCH 26.4 pg (27.0-34.0) L 12/23/20 04:38 MCHC 32.5 g/dL (33.0-35.0) L 12/23/20 04:38 RDW 15.9 % (11.6-16.5) 12/23/20 04:38 Plt Count 205 X10^3/uL (150.0-450.0) 12/23/20 04:38 MPV 10.3 fL (7.4-11.0) 12/23/20 04:38 Neut % (Auto) 74.2 % (42.0-75.0) 12/23/20 04:38 Lymph % (Auto) 18.8 % (21.0-51.0) L 12/23/20 04:38 [place] % (Auto) 6.5 % (0.0-13.0) 12/23/20 04:38 Eos % (Auto) 0.0 % (0.9-2.9) L 12/23/20 04:38 Baso % (Auto) 0.5 % (0.2-1.0) 12/23/20 04:38 Neut # (Auto) 9.1 x10^3/uL (2.2-4.8) H 12/23/20 04:38 Lymph # (Auto) 2.3 X10^3/uL (1.3-2.9) 12/23/20 04:38 [place] # (Auto) 0.8 x10^3/uL (0.3-0.8) 12/23/20 04:38 Eos # (Auto) 0.0 x10^3/uL (0.0-0.2) 12/23/20 04:38 Baso # (Auto) 0.1 X10^3/uL (0.0-0.1) 12/23/20 04:38 Absolute Nucleated RBC 0.1 /100WBC 12/23/20 04:38 Sodium 136 mmol/L (136-145) 12/23/20 04:38 Corrected Sodium TNP 12/23/20 04:38 Potassium 4.7 mmol/L (3.5-5.1) 12/23/20 04:38 Chloride 103 mmol/L (98-107) 12/23/20 04:38 Carbon Dioxide 25.4 mmol/L (21-32) 12/23/20 04:38 BUN 15 mg/dL (7-18) 12/23/20 04:38 Creatinine 0.89 mg/dL (0.55-1.02) 12/23/20 04:38 Est GFR (MDRD) Af Amer > 60 (>60) 12/23/20 04:38 Est GFR (MDRD) Non-Af > 60 (>60) 12/23/20 04:38 Glucose 95 mg/dL (65-99) 12/23/20 04:38 POC Glucose (mg/dL) 111 mg/dL (65-99) H 12/23/20 05:30 Calcium 8.3 mg/dL (8.5-10.1) L 12/23/20 04:38 Corrected Calcium 9.7 mg/dL (8.5-10.1) 12/23/20 04:38 Magnesium 2.2 mg/dL (1.7-2.9) 12/21/20 13:07 Total Bilirubin 0.50 mg/dL (0.2-1.0) 12/23/20 04:38 AST 18 Units/L (15-37) 12/23/20 04:38 ALT 7 Units/L (12-78) L 12/23/20 04:38 Alkaline Phosphatase 93 Units/L (46-116) 12/23/20 04:38 Creatine Kinase 89 Units/L (26-192) 12/21/20 13:07 CK-MB (CK-2) 1.1 ng/mL (0-4.0) 12/21/20 13:07 CK/CKMB % Calc 1.2 % (<4) 12/21/20 13:07 Troponin I < 0.02 ng/mL (0-1.5) 12/21/20 13:07 Total Protein 7.1 g/dL (6.4-8.2) 12/23/20 04:38 Albumin 2.3 g/dL (3.4-5.0) L 12/23/20 04:38 Globulin 4.8 g/dL (2.5-4.5) H 12/23/20 04:38 Albumin/Globulin Ratio 0.5 Ratio (1.1-2.1) L 12/23/20 04:38 Specimen Type Random urine 12/21/20 14:55 Urine Color Straw (YELLOW) 12/21/20 14:55 Urine Appearance Cloudy (CLEAR) 12/21/20 14:55 Urine pH 7.0 (5.0 - 8.0) 12/21/20 14:55 Ur Specific [place] 1.010 (1.000-1.030) 12/21/20 14:55 Urine Protein 3+ (NEGATIVE) 12/21/20 14:55 Urine Glucose (UA) 4+ (NEGATIVE) 12/21/20 14:55 Urine Ketones Negative (NEGATIVE) 12/21/20 14:55 Urine Occult Blood 3+ (NEGATIVE) 12/21/20 14:55 Urine Nitrite Negative (NEGATIVE) 12/21/20 14:55 Urine Bilirubin Negative (NEGATIVE) 12/21/20 14:55 Urine Urobilinogen Normal (NORMAL) 12/21/20 14:55 Ur Leukocyte Esterase 3+ (NEGATIVE) 12/21/20 14:55 Urine RBC 5-10 /HPF (0-3) A 12/21/20 14:55 Urine WBC Tntc /HPF (0-5) A 12/21/20 14:55 Ur Squamous Epith Cells Moderate /HPF (NEGATIVE) 12/21/20 14:55 Urine Bacteria Trace /HPF (NEGATIVE) 12/21/20 14:55 Ur Culture Indicated? No/not indicated 12/21/20 14:55 Acetone, Semi-Quant Negative (NEGATIVE) 12/21/20 13:07 SARS-CoV-2 (PCR) Negative (NEGATIVE) 12/22/20 12:07 Influenza Type A (PCR) Negative (NEGATIVE) 12/22/20 12:07 Influenza Type B (PCR) Negative (NEGATIVE) 12/22/20 12:07 RSV (PCR) Negative (NEGATIVE) 12/22/20 12:07 Plan (1) Critical ischemia of lower extremity: Status: Chronic Plan: Vascular surgery following (2) Hypokalemia: Status: Acute Plan: replete per protocol KCl 40mEq BID (3) Hyperglycemia: Status: Acute Plan: restart Lantus SSI (4) Gangrene: Status: Acute (5) UTI (urinary tract infection): Status: Acute Plan: Rocephin, Urine culture pending (6) Cellulitis of right foot: Status: Acute
[2020-12-23] MEDS ORDERED: PATIENT'S HOME MEDICATION (Insulin Glargine [Lantus Solostar U-100 Insulin] 100 unit/mL (3 SUBCUT SCH (09:00)
[2020-12-23] MEDS ORDERED: PHARMACY CONSULT - VANCOMYCIN XX SCH (09:00)
[2020-12-23] MEDS: NS 1000 ML 1,000 ML IV SCH ×2 (09:06→18:07)
[2020-12-23] MEDS: LANTUS SC SCH (09:09)
[2020-12-23] MEDS: NORVASC TAB 5 MG PO SCH (09:18)
[2020-12-23] MEDS: PROTONIX TAB 40 MG PO SCH ×2 (09:19→10:44)
[2020-12-23] MEDS: SYNTHROID 25 mcg TAB PO SCH ×2 (09:19→10:45)
[2020-12-23] MEDS: VANCOMYCIN IV *PREMIX 1 G/200 ML BAG 1 G/200 ML PIGGYBACK IV SCH ×2 (09:27→20:55)
[2020-12-23] MEDS: ZOSYN VIAL 3.375 GRAMS 3.375 G in NS 100 ML IV + SPIKE MINIBAG* 100 ML IV SCH ×3 (10:30→21:01)
[2020-12-23] MEDS: LOVENOX INJ 40 MG SYR SC SCH (10:43)
[2020-12-23] MEDS: TYLENOL 325 MG TAB PO PRN ×2 (10:43→23:47)
--- NOTE | 2020-12-23 11:06 | RAD ---
HISTORYFEVERSTUDYCHEST x-ray, 1 VIEWCOMPARISONX-ray 12/21/2020FINDINGSCOPD changes. Calcified granuloma. Patient is rotated to the right. Heart is likely normal in size. Calcification is seen of the aortic arch. There is coarsening of lung markings in the right mid to lower lung. This could be artifactual appearance associated with the rotation but early lobar pneumonia or interstitial pneumonia are not excluded.IMPRESSIONCoarsening of lung markings in the right mid to lower lung could be artifactual appearance but could be due to early pneumonia. Continued x-ray follow-up is recommended.Electronically signed by: Azar Sellers (Dec 23, 2020 11:04:34)
[2020-12-23] MEDS: HumuLIN R SUBCUT PRN (20:54)
[2020-12-23] MEDS: REQUIP PO SCH (20:58)
[2020-12-23] MEDS: PERCOCET TAB 5/325 MG PO PRN (20:59)
--- NOTE | 2020-12-23 22:41 | NOTE.SOAP ---
Soap Note Note for Day of Date of Exam: 12/23/20 Subjective Data Subjective Data: This patient status post stringing atherectomy of the right proximal and distal superficial femoral artery, popliteal arteries tibial peroneal trunk with drug-coated balloon angioplasty in late August of this year. This was done for nonhealing wound to the right heel. Patient was to have intervention the left lower extremity for rest pain. At presentation for the 2nd procedure was noted to have a cool right foot and complained of rest pain now. Follow-up ultrasound showed occlusion of the right superficial femoral artery with no flow at the ankle. At presentation had K+ of 2.4 and blood sugars greater than 400. Both being corrected by galley cook. Objective Data Temperature: 99.3 F Pulse Rate: 89 Respiratory Rate: 18 Blood Pressure: 189/81 O2 Sat by Pulse Oximetry: 98 Objective Data: Cool right foot with wound to the right field measuring 5 cm , in diameter and approximately 1 cm deep. Crusting over the great toe and 2nd toe is with ischemia. K+ now normal, BS=95 Assessment Assessment: Critical limb ischemia with occluded right superficial femoral artery and one vessel runoff. Plan Plan: Now that potassium and the but sugars are markedly improved will plan on table arteriogram with possible intervention of the right lower extremity to include possible AngioJet, possible EKOS, possible angioplasty and possible stenting in the near future. Tentatively will plan for this on Monday of this week November.
[2020-12-24 06:12] LABS: BASOPHILS % (AUTO) 0.2 % (0.2-1.0); EOSINOPHILS # (AUTO) 0.1 x10^3/uL (0.0-0.2); EOSINOPHILS % (AUTO) 0.5 % (0.9-2.9); HEMATOCRIT 32.6 % (36.0-47.0); HEMOGLOBIN 10.5 g/dL (12.0-16.0); LYMPHOCYTES # (AUTO) 2.1 X10^3/uL (1.3-2.9); LYMPHOCYTES % (AUTO) 17.6 % (21.0-51.0); MEAN CORPUSCULAR HEMOGLOBIN 26.1 pg (27.0-34.0); MEAN CORPUSCULAR HGB CONC 32.2 g/dL (33.0-35.0); MEAN CORPUSCULAR VOLUME 81.1 fL (80.0-100.0); MEAN PLATELET VOLUME 10.2 fL (7.4-11.0); MONOCYTES % (AUTO) 8.7 % (0.0-13.0); NEUTROPHILS # (AUTO) 8.6 x10^3/uL (2.2-4.8); PLATELET COUNT 203 X10^3/uL (150.0-450.0); RED BLOOD COUNT 4.03 X10^6/uL (3.5-5.4); RED CELL DISTRIBUTION WIDTH 15.7 % (11.6-16.5); WHITE BLOOD COUNT 11.7 X10^3/uL (3.6-10.0)
[2020-12-24] MEDS: NEURONTIN CAP 100 MG PO SCH ×3 (06:20→21:23)
[2020-12-24] MEDS: ZOSYN VIAL 3.375 GRAMS 3.375 G in NS 100 ML IV + SPIKE MINIBAG* 100 ML IV SCH ×3 (06:23→22:48)
--- NOTE | 2020-12-24 06:33 | RAD ---
HISTORYPNEUMONIA F/USTUDYCHEST, 1 [id number]/28/2021.TECHNIQUEAP view of the chestFINDINGSCardiac and mediastinal contours are within normal limits. The lungs are mildly hyperexpanded. Similar appearance mild interstitial coarsening in the right mid to lower lung. No consolidation. No definite pleural effusion or pneumothorax.IMPRESSIONMild lung hyper expansion with interstitial coarsening likely due to emphysema with chronic interstitial disease.Electronically signed by: Daniele Arcos (Dec 24, 2020 06:31:50)
[2020-12-24 06:36] LABS: BLOOD UREA NITROGEN 15 mg/dL (7-18); CALCIUM 7.5 mg/dL (8.5-10.1); CARBON DIOXIDE 25.1 mmol/L (21-32); CHLORIDE 102 mmol/L (98-107); CREATININE 0.89 mg/dL (0.55-1.02); SODIUM 137 mmol/L (136-145); eGFR NON BLACK RACES > 60 (>60)
[2020-12-24] MEDS: LANTUS SC SCH (09:30)
[2020-12-24] MEDS: PROTONIX TAB 40 MG PO SCH (09:31)
[2020-12-24] MEDS: VANCOMYCIN IV *PREMIX 1 G/200 ML BAG 1 G/200 ML PIGGYBACK IV SCH ×2 (09:31→21:30)
[2020-12-24] MEDS: NORVASC TAB 5 MG PO SCH (09:32)
[2020-12-24] MEDS: SYNTHROID 25 mcg TAB PO SCH (09:32)
[2020-12-24] MEDS: NS 1000 ML 1,000 ML IV SCH (09:36)
[2020-12-24] MEDS: LOVENOX INJ 40 MG SYR SC SCH (09:36)
--- NOTE | 2020-12-24 11:13 | PCM.PROG ---
Progress Note Progress Note for Day of Date of Exam: 12/24/20 Subjective Subjective: Patient seen at bedside, no acute events overnight. She did have a fever of 101 late last night, afebrile this morning. Patient denies any concerns this morning. She was resting in bed. Patient is currently being treated for right foot wound/cellulitis, hypokalemia and hyperglycemia. She is being seen by Dr Taylor and is tentatively scheduled for a RLE arteriogram and surgical intervention tomorrow. Labs: WBC 11.7 Hgb 10.5 K: 3.2 BUN/Cr: 15/0.89 Glucose 76 CXR: emphysema and chronic interstitial disease. Wound Cx: gram (-) rods Blood Cx negative Urine Cx pending Plan: continue potassium replacement as per protocol. Continue IV vancomycin and Zosyn. Follow cultures. Continue current treatment. Continue gentle hydration. Follow Vascular recommendations, tentative plan for procedure tomorrow. Continue pain control. Monitor AM labs and imaging. Past Medical Family Social History Past Med/Fam/Surg Hx: No changes since H&P Allergies: Allergies No Known Drug Allergies Allergy (Verified 09/21/20 10:53) Review of Systems ROS: No change since H&P Vital Signs and I&O's Vital Signs: Temperature 99.2 F Pulse Rate [Right Brachial] 76 Pulse Rate 89 Respiratory Rate 18 Blood Pressure [Right Arm] 127/56 Blood Pressure [Left Arm] 146/70 Blood Pressure 189/81 O2 Sat by Pulse Oximetry 99 Intake and Output: Intake & Output 12/21/20 12/22/20 12/23/20 12/24/20 23:59 23:59 23:59 23:59 Intake Total 600 / 600 4455 / 4455 3589 / 3589 974 / 974 Balance 600 / 600 4455 / 4455 3589 / 3589 974 / 974 Physical Exam Oriented: Normal Eyes: Normal Ear: Normal Nose: Normal Throat: Normal Respiratory: Generalized and Diminished Cardiovascular: Normal Auscultation: Bowel Sounds: Normal Tenderness: Normal Skin: Wound (gangrene right toe) Musculoskeletal: Normal Psychiatric: Normal Mood Description: Calm Speech Pattern: Clear, Inappropriate and Delayed Laboratory and Diagnostics Result Diagrams: 12/24/20 05:17 12/24/20 05:17 Labs: 12/23/20 10:39 Urine,Clean Catch Urine Culture - Preliminary 12/21/20 13:55 Foot - Right Wound Gram Stain - Final 12/21/20 13:55 Foot - Right Wound Culture - Preliminary Proteus Vulgaris Klebsiella Pneumoniae 12/21/20 13:38 Blood Blood Culture - Preliminary 12/21/20 13:33 Blood Blood Culture - Preliminary Laboratory WBC 11.7 X10^3/uL (3.6-10.0) H 12/24/20 05:17 RBC 4.03 X10^6/uL (3.5-5.4) 12/24/20 05:17 Hgb 10.5 g/dL (12.0-16.0) L D 12/24/20 05:17 Hct 32.6 % (36.0-47.0) L 12/24/20 05:17 MCV 81.1 fL (80.0-100.0) 12/24/20 05:17 MCH 26.1 pg (27.0-34.0) L 12/24/20 05:17 MCHC 32.2 g/dL (33.0-35.0) L 12/24/20 05:17 RDW 15.7 % (11.6-16.5) 12/24/20 05:17 Plt Count 203 X10^3/uL (150.0-450.0) 12/24/20 05:17 MPV 10.2 fL (7.4-11.0) 12/24/20 05:17 Neut % (Auto) 73.0 % (42.0-75.0) 12/24/20 05:17 Lymph % (Auto) 17.6 % (21.0-51.0) L 12/24/20 05:17 [place] % (Auto) 8.7 % (0.0-13.0) 12/24/20 05:17 Eos % (Auto) 0.5 % (0.9-2.9) L 12/24/20 05:17 Baso % (Auto) 0.2 % (0.2-1.0) 12/24/20 05:17 Neut # (Auto) 8.6 x10^3/uL (2.2-4.8) H 12/24/20 05:17 Lymph # (Auto) 2.1 X10^3/uL (1.3-2.9) 12/24/20 05:17 [place] # (Auto) 1.0 x10^3/uL (0.3-0.8) H 12/24/20 05:17 Eos # (Auto) 0.1 x10^3/uL (0.0-0.2) 12/24/20 05:17 Baso # (Auto) 0.0 X10^3/uL (0.0-0.1) 12/24/20 05:17 Absolute Nucleated RBC 0.1 /100WBC 12/24/20 05:17 Sodium 137 mmol/L (136-145) 12/24/20 05:17 Corrected Sodium TNP 12/24/20 05:17 Potassium 3.2 mmol/L (3.5-5.1) L 12/24/20 05:17 Chloride 102 mmol/L (98-107) 12/24/20 05:17 Carbon Dioxide 25.1 mmol/L (21-32) 12/24/20 05:17 BUN 15 mg/dL (7-18) 12/24/20 05:17 Creatinine 0.89 mg/dL (0.55-1.02) 12/24/20 05:17 Est GFR (MDRD) Af Amer > 60 (>60) 12/24/20 05:17 Est GFR (MDRD) Non-Af > 60 (>60) 12/24/20 05:17 Glucose 76 mg/dL (65-99) 12/24/20 05:17 POC Glucose (mg/dL) 72 mg/dL (65-99) 12/24/20 06:14 Calcium 7.5 mg/dL (8.5-10.1) L 12/24/20 05:17 Corrected Calcium 9.7 mg/dL (8.5-10.1) 12/23/20 04:38 Magnesium 2.2 mg/dL (1.7-2.9) 12/21/20 13:07 Total Bilirubin 0.50 mg/dL (0.2-1.0) 12/23/20 04:38 AST 18 Units/L (15-37) 12/23/20 04:38 ALT 7 Units/L (12-78) L 12/23/20 04:38 Alkaline Phosphatase 93 Units/L (46-116) 12/23/20 04:38 Creatine Kinase 89 Units/L (26-192) 12/21/20 13:07 CK-MB (CK-2) 1.1 ng/mL (0-4.0) 12/21/20 13:07 CK/CKMB % Calc 1.2 % (<4) 12/21/20 13:07 Troponin I < 0.02 ng/mL (0-1.5) 12/21/20 13:07 Total Protein 7.1 g/dL (6.4-8.2) 12/23/20 04:38 Albumin 2.3 g/dL (3.4-5.0) L 12/23/20 04:38 Globulin 4.8 g/dL (2.5-4.5) H 12/23/20 04:38 Albumin/Globulin Ratio 0.5 Ratio (1.1-2.1) L 12/23/20 04:38 Specimen Type Random urine 12/21/20 14:55 Urine Color Straw (YELLOW) 12/21/20 14:55 Urine Appearance Cloudy (CLEAR) 12/21/20 14:55 Urine pH 7.0 (5.0 - 8.0) 12/21/20 14:55 Ur Specific [place] 1.010 (1.000-1.030) 12/21/20 14:55 Urine Protein 3+ (NEGATIVE) 12/21/20 14:55 Urine Glucose (UA) 4+ (NEGATIVE) 12/21/20 14:55 Urine Ketones Negative (NEGATIVE) 12/21/20 14:55 Urine Occult Blood 3+ (NEGATIVE) 12/21/20 14:55 Urine Nitrite Negative (NEGATIVE) 12/21/20 14:55 Urine Bilirubin Negative (NEGATIVE) 12/21/20 14:55 Urine Urobilinogen Normal (NORMAL) 12/21/20 14:55 Ur Leukocyte Esterase 3+ (NEGATIVE) 12/21/20 14:55 Urine RBC 5-10 /HPF (0-3) A 12/21/20 14:55 Urine WBC Tntc /HPF (0-5) A 12/21/20 14:55 Ur Squamous Epith Cells Moderate /HPF (NEGATIVE) 12/21/20 14:55 Urine Bacteria Trace /HPF (NEGATIVE) 12/21/20 14:55 Ur Culture Indicated? No/not indicated 12/21/20 14:55 Acetone, Semi-Quant Negative (NEGATIVE) 12/21/20 13:07 SARS-CoV-2 (PCR) Negative (NEGATIVE) 12/22/20 12:07 Influenza Type A (PCR) Negative (NEGATIVE) 12/22/20 12:07 Influenza Type B (PCR) Negative (NEGATIVE) 12/22/20 12:07 RSV (PCR) Negative (NEGATIVE) 12/22/20 12:07 Plan (1) Critical ischemia of lower extremity: Status: Chronic (2) Hypokalemia: Status: Acute (3) Hyperglycemia: Status: Acute (4) Gangrene: Status: Acute (5) UTI (urinary tract infection): Status: Acute (6) Cellulitis of right foot: Status: Acute
[2020-12-24 11:43] LABS: ALANINE AMINOTRANSFERASE 7 Units/L (12-78); ALBUMIN 1.8 g/dL (3.4-5.0); ALKALINE PHOSPHATASE 81 Units/L (46-116); ASPARTATE AMINO TRANSFERASE 18 Units/L (15-37); COR CA(FOR HYPOALB) 9.3 mg/dL (8.5-10.1); TOTAL PROTEIN 6.2 g/dL (6.4-8.2)
[2020-12-24] MEDS: POTASSIUM CHL 40 MEQ/NS 0.45% 500 ML IV PRN (14:58)
[2020-12-24] MEDS: PERCOCET TAB 5/325 MG PO PRN ×2 (15:17→21:24)
--- NOTE | 2020-12-24 18:01 | NOTE.SOAP ---
Soap Note Note for Day of Date of Exam: 12/24/20 Subjective Data Subjective Data: Patient stable and K+ 3.2 today. Known occlusion of right SFA, popliteal and tib-peroneal trunk. s/p intervention of this leg in late August. Has not been compliant with her Plavix and has continued to smoke heavily. Objective Data Temperature: 99.3 F Pulse Rate: 68 Respiratory Rate: 20 Blood Pressure: 110/52 O2 Sat by Pulse Oximetry: 96 Objective Data: cool feet b/l , open wound right heel. K= 3.2, WBC= 11.7 wound cultures growing Proteus vulgaris and Klebsiella Pneumonia. On Zosyn and Vancomycin, sensitive to Zosyn. Assessment Assessment: Ischemic legs b/l, must address right leg first as it has been addressed and has occluded again. Plan Plan: Will plan to continue IV antibiotics and will plan to try and clear occlusion of right leg tomorrow in peripheral based fashion.
[2020-12-24] MEDS ORDERED: PHARMACY COMMENT IV ONE (20:30)
[2020-12-24] MEDS: HumuLIN R SUBCUT PRN (20:38)
[2020-12-24] MEDS: REQUIP PO SCH (20:39)
[2020-12-24 21:01] LABS: CREATININE 0.94 mg/dL (0.55-1.02); VANCOMYCIN,TROUGH 13.7 ug/mL (15-20)
[2020-12-25] MEDS: NS 1000 ML 1,000 ML IV SCH (03:30)
[2020-12-25 06:06] LABS: BASOPHILS % (AUTO) 0.4 % (0.2-1.0); EOSINOPHILS # (AUTO) 0.1 x10^3/uL (0.0-0.2); EOSINOPHILS % (AUTO) 0.9 % (0.9-2.9); HEMATOCRIT 31.7 % (36.0-47.0); HEMOGLOBIN 10.3 g/dL (12.0-16.0); LYMPHOCYTES # (AUTO) 1.6 X10^3/uL (1.3-2.9); LYMPHOCYTES % (AUTO) 15.9 % (21.0-51.0); MEAN CORPUSCULAR HEMOGLOBIN 26.5 pg (27.0-34.0); MEAN CORPUSCULAR HGB CONC 32.6 g/dL (33.0-35.0); MEAN CORPUSCULAR VOLUME 81.5 fL (80.0-100.0); MEAN PLATELET VOLUME 10.2 fL (7.4-11.0); MONOCYTES # (AUTO) 0.9 x10^3/uL (0.3-0.8); MONOCYTES % (AUTO) 8.4 % (0.0-13.0); NEUTROPHILS # (AUTO) 7.6 x10^3/uL (2.2-4.8); NEUTROPHILS % (AUTO) 74.4 % (42.0-75.0); PLATELET COUNT 197 X10^3/uL (150.0-450.0); RED BLOOD COUNT 3.89 X10^6/uL (3.5-5.4); WHITE BLOOD COUNT 10.2 X10^3/uL (3.6-10.0)
[2020-12-25 06:25] LABS: ALANINE AMINOTRANSFERASE 11 Units/L (12-78); ALBUMIN 1.8 g/dL (3.4-5.0); ALKALINE PHOSPHATASE 87 Units/L (46-116); ASPARTATE AMINO TRANSFERASE 16 Units/L (15-37); BLOOD UREA NITROGEN 13 mg/dL (7-18); CALCIUM 7.8 mg/dL (8.5-10.1); CARBON DIOXIDE 24.7 mmol/L (21-32); CHLORIDE 107 mmol/L (98-107); COR CA(FOR HYPOALB) 9.6 mg/dL (8.5-10.1); CREATININE 0.88 mg/dL (0.55-1.02); SODIUM 139 mmol/L (136-145); TOTAL PROTEIN 6.4 g/dL (6.4-8.2); eGFR NON BLACK RACES > 60 (>60)
[2020-12-25] MEDS: NEURONTIN CAP 100 MG PO SCH ×3 (06:45→21:48)
[2020-12-25] MEDS: ZOSYN VIAL 3.375 GRAMS 3.375 G in NS 100 ML IV + SPIKE MINIBAG* 100 ML IV SCH ×3 (06:45→21:49)
[2020-12-25] MEDS: NORVASC TAB 5 MG PO SCH (08:52)
[2020-12-25] MEDS: VANCOMYCIN IV *PREMIX 1 G/200 ML BAG 1 G/200 ML PIGGYBACK IV SCH ×2 (08:53→21:48)
[2020-12-25] MEDS ORDERED: D50W ABBOJECT SYR IVP ONE (10:00)
[2020-12-25] MEDS: D5 NS 1000 ML 1,000 ML IV SCH (10:23)
[2020-12-25] MEDS ORDERED: ANCEF 1 GRAM IV PREMIX* 2 G/100 ML BAG IV ONE (10:44)
[2020-12-25] MEDS ORDERED: NS 1000 ML 1,000 ML ONE (10:44)
[2020-12-25] MEDS ORDERED: DIPRIVAN VIAL 40 ML ONE (10:59)
[2020-12-25] MEDS ORDERED: FENTANYL VIAL INJ 100 mcg ONE (10:59)
[2020-12-25] MEDS ORDERED: PEPCID 20 MG IV PREMIX* 20 MG/50 ML BAG IV ONE (11:00)
[2020-12-25] MEDS ORDERED: HEPARIN SODIUM INJ 5000 UNITS ONE (11:01)
[2020-12-25] MEDS ORDERED: HEPARIN SODIUM IN D5W 75,000 UNITS/1,500 ML BAG ONE (11:01)
[2020-12-25] MEDS ORDERED: MARCAINE or SENSORCAINE 0.25% WITH EPI IJ ONE (11:01)
[2020-12-25] MEDS ORDERED: DIPRIVAN VIAL ONE (11:11)
[2020-12-25] MEDS ORDERED: XYLOCAINE 2 % (PLAIN) ONE (11:11)
[2020-12-25] MEDS ORDERED: KETALAR ONE (11:11)
[2020-12-25] MEDS ORDERED: PROTAMINE SULFATE 50 MG VIAL ONE (11:11)
[2020-12-25] MEDS ORDERED: EPHEDRINE SULFATE INJ ONE (11:11)
[2020-12-25 12:18] LABS: BILIRUBIN,URINE NEGATIVE (NEGATIVE); BLOOD/HEMOGLOBIN,URINE 4+ (NEGATIVE); GLUCOSE, URINE NEGATIVE (NEGATIVE); KETONES,URINE NEGATIVE (NEGATIVE); LEUKOCYTE ESTERASE ,URINE 3+ (NEGATIVE); NITRITES,URINE NEGATIVE (NEGATIVE); PROTEIN,URINE 3+ (NEGATIVE); UROBILINOGEN,URINE NORMAL (NORMAL)
[2020-12-25 12:31] LABS: APPEARANCE,URINE CLOUDY (CLEAR); COLOR,URINE YELLOW (YELLOW)
[2020-12-25 12:32] LABS: BACTERIA,URINE 2+ /HPF (NEGATIVE); SQUAMOUS EPITHELIAL CELL,UR RARE /HPF (NEGATIVE)
--- NOTE | 2020-12-25 13:29 | OR.IMMED ---
IMMEDIATE POST-OP NOTE Immediate Post-Op Note Pre-Op Diagnosis: Critical limb ischemia right lower extremity impending tissue loss Post-Op Diagnosis: same Procedure: Aortogram, diagnostic arteriogram right extremity with findings of complete occlusion in the midportion of the right superficial femoral artery with only one vessel distal reconstitution via the peroneal artery. Unable to get back into the peroneal artery. This patient does not ambulate in is not a candidate for bypass. She will require amputation the right leg. This will be discussed with her family and caregivers. Description of Procedure: see operative summary Surgeon/Associate Financial Representative: Claudia Findings: Complete occlusion of the right superficial femoral artery of distal 3rd with occlusion of the right popliteal. Only runoff is via the right peroneal and this could not be accessed. Specimens Removed: none Estimated Blood Loss: minimal Drains: NONE Complications: none Condition: Stable Post Hospital Plans and Medications: Will discuss amputation with the patient and her family. Final Diagnosis: Limb threatening ischemia right LE
--- NOTE | 2020-12-25 15:09 | DR.OPNOTE ---
OP NOTE Pre-Op Diagnosis: Limb threatening ischemia right leg Post-Op Diagnosis: same Procedure Date Date Of Procedure: 12/25/20 Procedure: The patient was taken to the operative suite and placed in the supine position.She was given IV sedation which was supervised by myself. The left groin and the entire right leg prepped and draped in sterile fashion. Ultrasonography used to identify the left common femoral artery and the skin overlying it infiltrated with 0.5% Marcaine with epinephrine. Ultrasonography used to guide puncture of the left common femoral artery and a 0.014 inch guidewire placed. Incision made over the guidewire at the skin level and a micro sheath placed. The small guidewire exchanged for a 0.035 inch guidewire and the micro sheath exchanged for a 5 [place] short vascular sheath. The patient was heparinized with 5000 units of heparin. Additional 2000 units of heparin was given at one hour. Omni catheter placed over the 0.035 inch guidewire and diagnostic aortogram carried out showing calcified vessels but normal flow in the aorta and internal and external iliac arteries. Omni catheter was exchanged for a RIM catheter and used to guide the guidewire down the right side into the common femoral artery. Omni catheter exchanged for a Trailblazer catheter and sequential arteriograms carried out of the right lower extremity showing complete occlusion at the junction of the middle thirds distal 3rd of the superficial femoral artery with no significant reconstruction always ankle. Only some collateral flow was noted. The short sheath was exchanged for a destination sheath which was parked in the right common femoral artery. Selective catheterization carried out of the 2nd level in the popliteal artery .0.018 inch wire and 0.035 inch wire were used to get down into the popliteal artery with some back flow of blood. Repeat arteriogram showed only a very small peroneal vessel with a long gap between the popliteal and the peroneal vessel. Multiple attempts were made to reestablish in continuity flow but they were all unsuccessful. The small guidewire exchanged for the 0.035 inch guidewire. The destination sheath pulled back into the aorta and the guidewire place up into the aorta. The destination sheet exchanged for an Angioseal closure device which was used to close the puncture in the left common from artery. I believe this patient will be best to consider amputation of the left leg. I will discuss this with the family. She is not mobile, continues to smoke heavily and is not compliant with her medications. She is not a good candidate for a bypass procedure. Type of Anesthesia: Local Anesthesia Comment: and MAC Findings: Patient underwent peripheral vascular intervention in the last week of August with atherectomy of complete total occlusion of the right superficial femoral artery and popliteal artery as well as atherectomy of the diseased right tibial peroneal trunk with the peroneal vessel being the only runoff. She was placed on Plavix and advised not to smoke. She is not compliant with her medication and has continued to smoke multiple packs of cigarettes per day. She presented for intervention of the left leg which also has limb threatening ischemia with ankle brachial index of 0.2 and was noted to have elevated blood sugar of 600 and potassium 2.4. She was admitted for resolution of this and examination of the right leg revealed no good flow and this was confirmed with ultrasonography showing complete occlusion of the right superficial femoral artery with no significant runoff. This was confirmed on today's study. See operative summary above. Type of Fluids Used:: Lactated Ringers EBL: minimal Complications:: none Needle/Sponge Count:: correct Disposition/Condition: Pt. tolerated procedure without difficulty. Taken to PACU in stable condition. Patient with severe vascular disease right leg eith one vessel runoff, continued cigarette abuse and non - compliance with medications. I was unable to re-establish arterial flow to the right foot. I have discussed this with her caregiver and feel she will need amputation of the right leg.
[2020-12-25] MEDS: LANTUS SC SCH (15:11)
[2020-12-25] MEDS: PROTONIX TAB 40 MG PO SCH (15:12)
[2020-12-25] MEDS: SYNTHROID 25 mcg TAB PO SCH (16:41)
--- NOTE | 2020-12-25 17:16 | PCM.PROG ---
Progress Note Progress Note for Day of Date of Exam: 12/25/20 Subjective Subjective: Patient seen at bedside, no acute events overnight. She is being seen by Vascular-Dr Taylor and is scheduled for a RLE surgical intervention this morning. Labs: WBC 10.2, Hgb 10.3, K: 4.3, BUN/Cr: 13/0.88 Glucose 76 CXR: emphysema and chronic interstitial disease. Wound Cx: Proteus vulgaris, Klebsiella pneu, Staph aur. Blood Cx NGTD Urine Cx NGTD Plan: Continue potassium replacement as per protocol. Continue IV vancomycin and Zosyn. Follow cultures. Continue current treatment. Continue gentle hydration. Follow Vascular recommendations, procedure scheduled for this morning. Continue pain control. Monitor AM labs and imaging. Past Medical Family Social History Past Med/Fam/Surg Hx: No changes since H&P Allergies: Allergies No Known Drug Allergies Allergy (Verified 09/21/20 10:53) Review of Systems ROS: No change since H&P Vital Signs and I&O's Vital Signs: Temperature 97.9 F Pulse Rate [Right Brachial] 64 Pulse Rate 68 Respiratory Rate 18 Blood Pressure [Right Arm] 129/58 Blood Pressure [Left Arm] 137/63 Blood Pressure 110/52 O2 Sat by Pulse Oximetry 97 Intake and Output: Intake & Output 12/22/20 12/23/20 12/24/20 12/25/20 23:59 23:59 23:59 23:59 Intake Total 4455 / 4455 3589 / 3589 4399 / 4399 500 / 500 Output Total 1800 / 1800 Balance 4455 / 4455 3589 / 3589 4399 / 4399 -1300 / -1300 Physical Exam Oriented: Normal Eyes: Normal Ear: Normal Nose: Normal Throat: Normal Respiratory: Generalized and Diminished Cardiovascular: Normal : Normal Auscultation: Bowel Sounds: Normal Tenderness: Normal Skin: Wound (gangrene right toe) Musculoskeletal: Normal Psychiatric: Normal Mood Description: Calm Speech Pattern: Clear Laboratory and Diagnostics Result Diagrams: 12/25/20 05:28 12/25/20 05:28 Labs: 12/23/20 10:39 Urine,Clean Catch Urine Culture - Final 12/21/20 13:55 Foot - Right Wound Gram Stain - Final 12/21/20 13:55 Foot - Right Wound Culture - Final Proteus Vulgaris Klebsiella Pneumoniae Staphylococcus Aureus 12/21/20 13:38 Blood Blood Culture - Preliminary 12/21/20 13:33 Blood Blood Culture - Preliminary Laboratory WBC 10.2 X10^3/uL (3.6-10.0) H 12/25/20 05:28 RBC 3.89 X10^6/uL (3.5-5.4) 12/25/20 05:28 Hgb 10.3 g/dL (12.0-16.0) L 12/25/20 05:28 Hct 31.7 % (36.0-47.0) L 12/25/20 05:28 MCV 81.5 fL (80.0-100.0) 12/25/20 05:28 MCH 26.5 pg (27.0-34.0) L 12/25/20 05:28 MCHC 32.6 g/dL (33.0-35.0) L 12/25/20 05:28 RDW 16.0 % (11.6-16.5) 12/25/20 05:28 Plt Count 197 X10^3/uL (150.0-450.0) 12/25/20 05:28 MPV 10.2 fL (7.4-11.0) 12/25/20 05:28 Neut % (Auto) 74.4 % (42.0-75.0) 12/25/20 05:28 Lymph % (Auto) 15.9 % (21.0-51.0) L 12/25/20 05:28 [place] % (Auto) 8.4 % (0.0-13.0) 12/25/20 05:28 Eos % (Auto) 0.9 % (0.9-2.9) 12/25/20 05:28 Baso % (Auto) 0.4 % (0.2-1.0) 12/25/20 05:28 Neut # (Auto) 7.6 x10^3/uL (2.2-4.8) H 12/25/20 05:28 Lymph # (Auto) 1.6 X10^3/uL (1.3-2.9) 12/25/20 05:28 [place] # (Auto) 0.9 x10^3/uL (0.3-0.8) H 12/25/20 05:28 Eos # (Auto) 0.1 x10^3/uL (0.0-0.2) 12/25/20 05:28 Baso # (Auto) 0.0 X10^3/uL (0.0-0.1) 12/25/20 05:28 Absolute Nucleated RBC 0.0 /100WBC 12/25/20 05:28 Sodium 139 mmol/L (136-145) 12/25/20 05:28 Corrected Sodium TNP 12/25/20 05:28 Potassium 4.3 mmol/L (3.5-5.1) 12/25/20 05:28 Chloride 107 mmol/L (98-107) 12/25/20 05:28 Carbon Dioxide 24.7 mmol/L (21-32) 12/25/20 05:28 BUN 13 mg/dL (7-18) 12/25/20 05:28 Creatinine 0.88 mg/dL (0.55-1.02) 12/25/20 05:28 Est GFR (MDRD) Af Amer > 60 (>60) 12/25/20 05:28 Est GFR (MDRD) Non-Af > 60 (>60) 12/25/20 05:28 Glucose 76 mg/dL (65-99) 12/25/20 05:28 POC Glucose (mg/dL) 81 mg/dL (65-99) 12/25/20 16:21 Calcium 7.8 mg/dL (8.5-10.1) L 12/25/20 05:28 Corrected Calcium 9.6 mg/dL (8.5-10.1) 12/25/20 05:28 Magnesium 2.2 mg/dL (1.7-2.9) 12/21/20 13:07 Total Bilirubin 0.30 mg/dL (0.2-1.0) 12/25/20 05:28 AST 16 Units/L (15-37) 12/25/20 05:28 ALT 11 Units/L (12-78) L 12/25/20 05:28 Alkaline Phosphatase 87 Units/L (46-116) 12/25/20 05:28 Creatine Kinase 89 Units/L (26-192) 12/21/20 13:07 CK-MB (CK-2) 1.1 ng/mL (0-4.0) 12/21/20 13:07 CK/CKMB % Calc 1.2 % (<4) 12/21/20 13:07 Troponin I < 0.02 ng/mL (0-1.5) 12/21/20 13:07 Total Protein 6.4 g/dL (6.4-8.2) 12/25/20 05:28 Albumin 1.8 g/dL (3.4-5.0) L 12/25/20 05:28 Globulin 4.6 g/dL (2.5-4.5) H 12/25/20 05:28 Albumin/Globulin Ratio 0.4 Ratio (1.1-2.1) L 12/25/20 05:28 Specimen Type Catherized urine 12/25/20 11:30 Urine Color Yellow (YELLOW) 12/25/20 11:30 Urine Appearance Cloudy (CLEAR) 12/25/20 11:30 Urine pH 5.0 (5.0 - 8.0) 12/25/20 11:30 Ur Specific [place] 1.015 (1.000-1.030) 12/25/20 11:30 Urine Protein 3+ (NEGATIVE) 12/25/20 11:30 Urine Glucose (UA) Negative (NEGATIVE) 12/25/20 11:30 Urine Ketones Negative (NEGATIVE) 12/25/20 11:30 Urine Occult Blood 4+ (NEGATIVE) 12/25/20 11:30 Urine Nitrite Negative (NEGATIVE) 12/25/20 11:30 Urine Bilirubin Negative (NEGATIVE) 12/25/20 11:30 Urine Urobilinogen Normal (NORMAL) 12/25/20 11:30 Ur Leukocyte Esterase 3+ (NEGATIVE) 12/25/20 11:30 Urine RBC 10-20 /HPF (0-3) A 12/25/20 11:30 Urine WBC Tntc /HPF (0-5) A 12/25/20 11:30 Ur Squamous Epith Cells Rare /HPF (NEGATIVE) 12/25/20 11:30 Urine Bacteria 2+ /HPF (NEGATIVE) 12/25/20 11:30 Ur Culture Indicated? Yes/culture set up 12/25/20 11:30 Vancomycin Trough 13.7 ug/mL (15-20) L 12/24/20 20:26 Acetone, Semi-Quant Negative (NEGATIVE) 12/21/20 13:07 SARS-CoV-2 (PCR) Negative (NEGATIVE) 12/22/20 12:07 Influenza Type A (PCR) Negative (NEGATIVE) 12/22/20 12:07 Influenza Type B (PCR) Negative (NEGATIVE) 12/22/20 12:07 RSV (PCR) Negative (NEGATIVE) 12/22/20 12:07 Plan (1) Critical ischemia of lower extremity: Status: Chronic Plan: Vascular surgery following (2) Hypokalemia: Status: Acute Plan: replete per protocol KCl 40mEq BID (3) Hyperglycemia: Status: Acute Plan: restart Lantus SSI (4) Gangrene: Status: Acute (5) UTI (urinary tract infection): Status: Acute Plan: Rocephin, Urine culture pending (6) Cellulitis of right foot: Status: Acute
[2020-12-25] MEDS: REQUIP PO SCH (21:48)
[2020-12-26] MEDS: D5 NS 1000 ML 1,000 ML IV SCH ×2 (01:06→14:28)
[2020-12-26] MEDS: NEURONTIN CAP 100 MG PO SCH ×3 (06:09→21:49)
[2020-12-26] MEDS: ZOSYN VIAL 3.375 GRAMS 3.375 G in NS 100 ML IV + SPIKE MINIBAG* 100 ML IV SCH ×3 (06:10→21:49)
[2020-12-26 07:00] LABS: BASOPHILS # (AUTO) 0.1 X10^3/uL (0.0-0.1); BASOPHILS % (AUTO) 1.4 % (0.2-1.0); EOSINOPHILS # (AUTO) 0.1 x10^3/uL (0.0-0.2); EOSINOPHILS % (AUTO) 0.9 % (0.9-2.9); HEMATOCRIT 31.1 % (36.0-47.0); LYMPHOCYTES # (AUTO) 1.9 X10^3/uL (1.3-2.9); LYMPHOCYTES % (AUTO) 22.3 % (21.0-51.0); MEAN CORPUSCULAR HEMOGLOBIN 26.2 pg (27.0-34.0); MEAN CORPUSCULAR HGB CONC 32.1 g/dL (33.0-35.0); MEAN CORPUSCULAR VOLUME 81.5 fL (80.0-100.0); MEAN PLATELET VOLUME 10.2 fL (7.4-11.0); MONOCYTES # (AUTO) 0.7 x10^3/uL (0.3-0.8); MONOCYTES % (AUTO) 7.9 % (0.0-13.0); NEUTROPHILS # (AUTO) 5.8 x10^3/uL (2.2-4.8); NEUTROPHILS % (AUTO) 67.5 % (42.0-75.0); PLATELET COUNT 227 X10^3/uL (150.0-450.0); RED BLOOD COUNT 3.82 X10^6/uL (3.5-5.4); RED CELL DISTRIBUTION WIDTH 16.2 % (11.6-16.5); WHITE BLOOD COUNT 8.6 X10^3/uL (3.6-10.0)
[2020-12-26 07:34] LABS: ALANINE AMINOTRANSFERASE 12 Units/L (12-78); ALBUMIN 1.8 g/dL (3.4-5.0); ALKALINE PHOSPHATASE 83 Units/L (46-116); ASPARTATE AMINO TRANSFERASE 19 Units/L (15-37); BLOOD UREA NITROGEN 7 mg/dL (7-18); CALCIUM 7.4 mg/dL (8.5-10.1); CARBON DIOXIDE 22.1 mmol/L (21-32); CHLORIDE 106 mmol/L (98-107); COR CA(FOR HYPOALB) 9.2 mg/dL (8.5-10.1); SODIUM 141 mmol/L (136-145); TOTAL PROTEIN 6.4 g/dL (6.4-8.2); eGFR NON BLACK RACES > 60 (>60)
[2020-12-26] MEDS ORDERED: MILK OF MAGNESIA PO PRN (08:37)
[2020-12-26] MEDS: NORVASC TAB 5 MG PO SCH (09:17)
[2020-12-26] MEDS: PROTONIX TAB 40 MG PO SCH (09:17)
[2020-12-26] MEDS: PERCOCET TAB 5/325 MG PO PRN (09:18)
[2020-12-26] MEDS: SYNTHROID 25 mcg TAB PO SCH (09:28)
[2020-12-26] MEDS: KLOR-CON PO PRN ×2 (09:35→16:36)
[2020-12-26 10:07] LABS: CREATININE 0.69 mg/dL (0.55-1.02)
[2020-12-26] MEDS: LOVENOX INJ 40 MG SYR SC SCH (13:38)
--- NOTE | 2020-12-26 14:51 | PCM.PROG ---
Progress Note Progress Note for Day of Date of Exam: 12/26/20 Subjective Subjective: Patient seen at bedside, no acute concerns. She is being seen by Vascular-Dr Taylor, had procedure yesterday that was unsuccessful in establishing continuity of flow of leg vessels. Labs: WBC 8.6, Hgb 10, Plt 227, Na 141, K:2.8, Cr:0.70 Glucose 87 CXR: emphysema and chronic interstitial disease. Wound Cx: Proteus vulgaris, Klebsiella pneu, Staph aur. Blood Cx NGTD Urine Cx NGTD Plan: Continue potassium replacement as per protocol. Continue IV vancomycin and Zosyn. Follow cultures. Continue current treatment. Continue gentle hydration. Follow Vascular recommendations: Pt is not mobile, continues to smoke heavily, and is not compliant with her medications. She is not a good candidate for a bypass procedure. To be determined if patient will undergo amputation of lower limbs. Past Medical Family Social History Past Med/Fam/Surg Hx: No changes since H&P Allergies: Allergies No Known Drug Allergies Allergy (Verified 09/21/20 10:53) Review of Systems ROS: No change since H&P Vital Signs and I&O's Vital Signs: Temperature 98.5 F Pulse Rate [Right Brachial] 66 Pulse Rate 68 Respiratory Rate 17 Blood Pressure [Right Arm] 131/58 Blood Pressure [Left Arm] 137/63 Blood Pressure 110/52 O2 Sat by Pulse Oximetry 98 Intake and Output: Intake & Output 12/23/20 12/24/20 12/25/20 12/26/20 23:59 23:59 23:59 23:59 Intake Total 3589 / 3589 4399 / 4399 3140 / 3140 2495 / 2495 Output Total 4400 / 4400 2100 / 2100 Balance 3589 / 3589 4399 / 4399 -1260 / -1260 395 / 395 Physical Exam Oriented: Normal Eyes: Normal Ear: Normal Nose: Normal Throat: Normal Respiratory: Generalized and Diminished Cardiovascular: Normal : Normal Auscultation: Bowel Sounds: Normal Tenderness: Normal Skin: Wound (gangrene right toe) Musculoskeletal: Normal Psychiatric: Normal Mood Description: Calm Speech Pattern: Unclear and Inappropriate Laboratory and Diagnostics Result Diagrams: 12/26/20 06:16 12/26/20 12:00 Labs: 12/25/20 11:30 Urine,Catheterized Urine Culture - Preliminary 12/23/20 10:39 Urine,Clean Catch Urine Culture - Final 12/21/20 13:55 Foot - Right Wound Gram Stain - Final 12/21/20 13:55 Foot - Right Wound Culture - Final Proteus Vulgaris Klebsiella Pneumoniae Staphylococcus Aureus 12/21/20 13:38 Blood Blood Culture - Preliminary 12/21/20 13:33 Blood Blood Culture - Preliminary Laboratory WBC 8.6 X10^3/uL (3.6-10.0) 12/26/20 06:16 RBC 3.82 X10^6/uL (3.5-5.4) 12/26/20 06:16 Hgb 10.0 g/dL (12.0-16.0) L 12/26/20 06:16 Hct 31.1 % (36.0-47.0) L 12/26/20 06:16 MCV 81.5 fL (80.0-100.0) 12/26/20 06:16 MCH 26.2 pg (27.0-34.0) L 12/26/20 06:16 MCHC 32.1 g/dL (33.0-35.0) L 12/26/20 06:16 RDW 16.2 % (11.6-16.5) 12/26/20 06:16 Plt Count 227 X10^3/uL (150.0-450.0) 12/26/20 06:16 MPV 10.2 fL (7.4-11.0) 12/26/20 06:16 Neut % (Auto) 67.5 % (42.0-75.0) 12/26/20 06:16 Lymph % (Auto) 22.3 % (21.0-51.0) 12/26/20 06:16 [place] % (Auto) 7.9 % (0.0-13.0) 12/26/20 06:16 Eos % (Auto) 0.9 % (0.9-2.9) 12/26/20 06:16 Baso % (Auto) 1.4 % (0.2-1.0) H 12/26/20 06:16 Neut # (Auto) 5.8 x10^3/uL (2.2-4.8) H 12/26/20 06:16 Lymph # (Auto) 1.9 X10^3/uL (1.3-2.9) 12/26/20 06:16 [place] # (Auto) 0.7 x10^3/uL (0.3-0.8) 12/26/20 06:16 Eos # (Auto) 0.1 x10^3/uL (0.0-0.2) 12/26/20 06:16 Baso # (Auto) 0.1 X10^3/uL (0.0-0.1) 12/26/20 06:16 Absolute Nucleated RBC 0.1 /100WBC 12/26/20 06:16 Sodium 141 mmol/L (136-145) 12/26/20 06:16 Corrected Sodium TNP 12/26/20 06:16 Potassium 3.8 mmol/L (3.5-5.1) 12/26/20 12:00 Chloride 106 mmol/L (98-107) 12/26/20 06:16 Carbon Dioxide 22.1 mmol/L (21-32) 12/26/20 06:16 BUN 7 mg/dL (7-18) 12/26/20 06:16 Creatinine 0.69 mg/dL (0.55-1.02) 12/26/20 06:16 Creatinine 0.70 mg/dL (0.55-1.02) 12/26/20 06:16 Est GFR (MDRD) Af Amer > 60 (>60) 12/26/20 06:16 Est GFR (MDRD) Non-Af > 60 (>60) 12/26/20 06:16 Glucose 87 mg/dL (65-99) 12/26/20 06:16 POC Glucose (mg/dL) 115 mg/dL (65-99) H 12/26/20 12:47 Calcium 7.4 mg/dL (8.5-10.1) L 12/26/20 06:16 Corrected Calcium 9.2 mg/dL (8.5-10.1) 12/26/20 06:16 Magnesium 2.2 mg/dL (1.7-2.9) 12/21/20 13:07 Total Bilirubin 0.40 mg/dL (0.2-1.0) 12/26/20 06:16 AST 19 Units/L (15-37) 12/26/20 06:16 ALT 12 Units/L (12-78) 12/26/20 06:16 Alkaline Phosphatase 83 Units/L (46-116) 12/26/20 06:16 Creatine Kinase 89 Units/L (26-192) 12/21/20 13:07 CK-MB (CK-2) 1.1 ng/mL (0-4.0) 12/21/20 13:07 CK/CKMB % Calc 1.2 % (<4) 12/21/20 13:07 Troponin I < 0.02 ng/mL (0-1.5) 12/21/20 13:07 Total Protein 6.4 g/dL (6.4-8.2) 12/26/20 06:16 Albumin 1.8 g/dL (3.4-5.0) L 12/26/20 06:16 Globulin 4.6 g/dL (2.5-4.5) H 12/26/20 06:16 Albumin/Globulin Ratio 0.4 Ratio (1.1-2.1) L 12/26/20 06:16 Specimen Type Catherized urine 12/25/20 11:30 Urine Color Yellow (YELLOW) 12/25/20 11:30 Urine Appearance Cloudy (CLEAR) 12/25/20 11:30 Urine pH 5.0 (5.0 - 8.0) 12/25/20 11:30 Ur Specific [place] 1.015 (1.000-1.030) 12/25/20 11:30 Urine Protein 3+ (NEGATIVE) 12/25/20 11:30 Urine Glucose (UA) Negative (NEGATIVE) 12/25/20 11:30 Urine Ketones Negative (NEGATIVE) 12/25/20 11:30 Urine Occult Blood 4+ (NEGATIVE) 12/25/20 11:30 Urine Nitrite Negative (NEGATIVE) 12/25/20 11:30 Urine Bilirubin Negative (NEGATIVE) 12/25/20 11:30 Urine Urobilinogen Normal (NORMAL) 12/25/20 11:30 Ur Leukocyte Esterase 3+ (NEGATIVE) 12/25/20 11:30 Urine RBC 10-20 /HPF (0-3) A 12/25/20 11:30 Urine WBC Tntc /HPF (0-5) A 12/25/20 11:30 Ur Squamous Epith Cells Rare /HPF (NEGATIVE) 12/25/20 11:30 Urine Bacteria 2+ /HPF (NEGATIVE) 12/25/20 11:30 Ur Culture Indicated? Yes/culture set up 12/25/20 11:30 Vancomycin Trough 21.0 ug/mL (15-20) H* 12/26/20 06:16 Acetone, Semi-Quant Negative (NEGATIVE) 12/21/20 13:07 SARS-CoV-2 (PCR) Negative (NEGATIVE) 12/22/20 12:07 Influenza Type A (PCR) Negative (NEGATIVE) 12/22/20 12:07 Influenza Type B (PCR) Negative (NEGATIVE) 12/22/20 12:07 RSV (PCR) Negative (NEGATIVE) 12/22/20 12:07 Plan (1) Critical ischemia of lower extremity: Status: Chronic Plan: Vascular surgery following (2) Hypokalemia: Status: Acute Plan: replete per protocol KCl 40mEq BID (3) Hyperglycemia: Status: Acute Plan: restart Lantus SSI (4) Gangrene: Status: Acute (5) UTI (urinary tract infection): Status: Acute Plan: Rocephin, Urine culture pending (6) Cellulitis of right foot: Status: Acute
[2020-12-26] MEDS ORDERED: K-DUR TAB 20 MEQ PO SCH (16:00)
[2020-12-26] MEDS: COLACE CAP 100 MG PO SCH (21:47)
[2020-12-26] MEDS: VANCOMYCIN IV *PREMIX 750 mg/150 ML BAG 750 MG/150 ML PIGGYBACK IV SCH (21:48)
[2020-12-26] MEDS: REQUIP PO SCH (21:48)
--- NOTE | 2020-12-26 23:30 | NOTE.SOAP ---
Soap Note Note for Day of Date of Exam: 12/26/20 Objective Data Temperature: 98.3 F Pulse Rate: 67 Respiratory Rate: 18 O2 Sat by Pulse Oximetry: 96 Objective Data: Needle stick to the left groin looks good. right leg with non- healing wound to heel. Assessment Assessment: Ischemic right leg. I was unable to re-vascularize. Not a candidate for open procedure Plan Plan: Will schedule for right leg amputation next week.
[2020-12-27] MEDS: PERCOCET TAB 5/325 MG PO PRN ×3 (04:24→21:16)
[2020-12-27] MEDS: D5 NS 1000 ML 1,000 ML IV SCH ×2 (05:39→14:58)
[2020-12-27] MEDS: NEURONTIN CAP 100 MG PO SCH ×3 (05:40→21:11)
[2020-12-27] MEDS: ZOSYN VIAL 3.375 GRAMS 3.375 G in NS 100 ML IV + SPIKE MINIBAG* 100 ML IV SCH ×3 (05:41→22:07)
[2020-12-27 06:02] LABS: BASOPHILS # (AUTO) 0.1 X10^3/uL (0.0-0.1); BASOPHILS % (AUTO) 0.8 % (0.2-1.0); EOSINOPHILS # (AUTO) 0.1 x10^3/uL (0.0-0.2); EOSINOPHILS % (AUTO) 2.1 % (0.9-2.9); HEMATOCRIT 26.2 % (36.0-47.0); HEMOGLOBIN 8.6 g/dL (12.0-16.0); LYMPHOCYTES # (AUTO) 1.8 X10^3/uL (1.3-2.9); LYMPHOCYTES % (AUTO) 26.6 % (21.0-51.0); MEAN CORPUSCULAR HEMOGLOBIN 26.4 pg (27.0-34.0); MEAN CORPUSCULAR HGB CONC 32.9 g/dL (33.0-35.0); MEAN CORPUSCULAR VOLUME 80.1 fL (80.0-100.0); MONOCYTES # (AUTO) 0.6 x10^3/uL (0.3-0.8); MONOCYTES % (AUTO) 9.6 % (0.0-13.0); NEUTROPHILS # (AUTO) 4.1 x10^3/uL (2.2-4.8); NEUTROPHILS % (AUTO) 60.9 % (42.0-75.0); PLATELET COUNT 219 X10^3/uL (150.0-450.0); RED BLOOD COUNT 3.27 X10^6/uL (3.5-5.4); RED CELL DISTRIBUTION WIDTH 15.9 % (11.6-16.5); WHITE BLOOD COUNT 6.7 X10^3/uL (3.6-10.0)
[2020-12-27 06:15] LABS: ALANINE AMINOTRANSFERASE 10 Units/L (12-78); ALBUMIN 1.5 g/dL (3.4-5.0); ALKALINE PHOSPHATASE 81 Units/L (46-116); ASPARTATE AMINO TRANSFERASE 14 Units/L (15-37); BLOOD UREA NITROGEN 7 mg/dL (7-18); CALCIUM 7.2 mg/dL (8.5-10.1); CARBON DIOXIDE 25.4 mmol/L (21-32); CHLORIDE 106 mmol/L (98-107); COR CA(FOR HYPOALB) 9.2 mg/dL (8.5-10.1); COR NA(FOR HYPERGLY) 143 mmol/L (136-145); CREATININE 0.75 mg/dL (0.55-1.02); SODIUM 140 mmol/L (136-145); TOTAL PROTEIN 5.8 g/dL (6.4-8.2); eGFR NON BLACK RACES > 60 (>60)
[2020-12-27] MEDS: SYNTHROID 25 mcg TAB PO SCH (09:12)
[2020-12-27] MEDS: LOVENOX INJ 40 MG SYR SC SCH (09:12)
[2020-12-27] MEDS: K-DUR TAB 20 MEQ PO SCH (09:12)
[2020-12-27] MEDS: PROTONIX TAB 40 MG PO SCH (09:12)
[2020-12-27] MEDS: NORVASC TAB 5 MG PO SCH (09:12)
[2020-12-27] MEDS: VANCOMYCIN IV *PREMIX 750 mg/150 ML BAG 750 MG/150 ML PIGGYBACK IV SCH ×2 (09:15→21:11)
[2020-12-27] MEDS: TYLENOL 325 MG TAB PO PRN (09:16)
--- NOTE | 2020-12-27 11:42 | PCM.PROG ---
Progress Note Progress Note for Day of Date of Exam: 12/27/20 Subjective Subjective: Patient seen at bedside. She is resting comfortably, no acute concerns. She is being seen by Vascular-Dr Taylor. Labs: WBC 6.7 Hgb 8.6, Plt 219, Na 140, K:3.1, Cr:0.75 Glucose 206 CXR: emphysema and chronic interstitial disease. Wound Cx: Proteus vulgaris, Klebsiella pneu, Staph aur. Blood Cx NGTD Urine Cx NGTD Plan: Continue potassium replacement as per protocol. Continue IV vancomycin and Zosyn. Follow cultures. Continue current treatment. Continue gentle hydration. Follow Vascular recommendations: Possible right leg amputation next week. Past Medical Family Social History Past Med/Fam/Surg Hx: No changes since H&P Allergies: Allergies No Known Drug Allergies Allergy (Verified 09/21/20 10:53) Review of Systems ROS: No change since H&P Vital Signs and I&O's Vital Signs: Temperature 98.1 F Pulse Rate [Right Brachial] 62 Pulse Rate 67 Respiratory Rate 18 Blood Pressure [Right Arm] 177/75 Blood Pressure [Left Arm] 129/57 Blood Pressure 110/52 O2 Sat by Pulse Oximetry 95 Intake and Output: Intake & Output 12/24/20 12/25/20 12/26/20 12/27/20 23:59 23:59 23:59 23:59 Intake Total 4399 / 4399 3140 / 3140 5432 / 5432 1635 / 1635 Output Total 4400 / 4400 5625 / 5625 1900 / 1900 Balance 4399 / 4399 -1260 / -1260 -193 / -193 -265 / -265 Physical Exam Oriented: Normal Eyes: Normal Ear: Normal Nose: Normal Throat: Normal Respiratory: Generalized and Diminished Cardiovascular: Normal : Normal Auscultation: Bowel Sounds: Normal Tenderness: Normal Skin: Wound (gangrene right toe) Musculoskeletal: Normal Psychiatric: Normal Mood Description: Calm Speech Pattern: Appropriate and Unclear Laboratory and Diagnostics Result Diagrams: 12/27/20 05:22 12/27/20 05:22 Labs: 12/21/20 13:38 Blood Blood Culture - Final 12/21/20 13:33 Blood Blood Culture - Final 12/25/20 11:30 Urine,Catheterized Urine Culture - Final 12/23/20 10:39 Urine,Clean Catch Urine Culture - Final 12/21/20 13:55 Foot - Right Wound Gram Stain - Final 12/21/20 13:55 Foot - Right Wound Culture - Final Proteus Vulgaris Klebsiella Pneumoniae Staphylococcus Aureus Laboratory WBC 6.7 X10^3/uL (3.6-10.0) 12/27/20 05:22 RBC 3.27 X10^6/uL (3.5-5.4) L 12/27/20 05:22 Hgb 8.6 g/dL (12.0-16.0) L 12/27/20 05:22 Hct 26.2 % (36.0-47.0) L 12/27/20 05:22 MCV 80.1 fL (80.0-100.0) 12/27/20 05:22 MCH 26.4 pg (27.0-34.0) L 12/27/20 05:22 MCHC 32.9 g/dL (33.0-35.0) L 12/27/20 05:22 RDW 15.9 % (11.6-16.5) 12/27/20 05:22 Plt Count 219 X10^3/uL (150.0-450.0) 12/27/20 05:22 MPV 10.0 fL (7.4-11.0) 12/27/20 05:22 Neut % (Auto) 60.9 % (42.0-75.0) 12/27/20 05:22 Lymph % (Auto) 26.6 % (21.0-51.0) 12/27/20 05:22 [place] % (Auto) 9.6 % (0.0-13.0) 12/27/20 05:22 Eos % (Auto) 2.1 % (0.9-2.9) 12/27/20 05:22 Baso % (Auto) 0.8 % (0.2-1.0) 12/27/20 05:22 Neut # (Auto) 4.1 x10^3/uL (2.2-4.8) 12/27/20 05:22 Lymph # (Auto) 1.8 X10^3/uL (1.3-2.9) 12/27/20 05:22 [place] # (Auto) 0.6 x10^3/uL (0.3-0.8) 12/27/20 05:22 Eos # (Auto) 0.1 x10^3/uL (0.0-0.2) 12/27/20 05:22 Baso # (Auto) 0.1 X10^3/uL (0.0-0.1) 12/27/20 05:22 Absolute Nucleated RBC 0.0 /100WBC 12/27/20 05:22 Sodium 140 mmol/L (136-145) 12/27/20 05:22 Corrected Sodium 143 mmol/L (136-145) 12/27/20 05:22 Potassium 3.1 mmol/L (3.5-5.1) L 12/27/20 05:22 Chloride 106 mmol/L (98-107) 12/27/20 05:22 Carbon Dioxide 25.4 mmol/L (21-32) 12/27/20 05:22 BUN 7 mg/dL (7-18) 12/27/20 05:22 Creatinine 0.75 mg/dL (0.55-1.02) 12/27/20 05:22 Est GFR (MDRD) Af Amer > 60 (>60) 12/27/20 05:22 Est GFR (MDRD) Non-Af > 60 (>60) 12/27/20 05:22 Glucose 206 mg/dL (65-99) H 12/27/20 05:22 POC Glucose (mg/dL) 127 mg/dL (65-99) H 12/27/20 11:20 Calcium 7.2 mg/dL (8.5-10.1) L 12/27/20 05:22 Corrected Calcium 9.2 mg/dL (8.5-10.1) 12/27/20 05:22 Magnesium 1.7 mg/dL (1.7-2.9) 12/27/20 05:22 Total Bilirubin 0.20 mg/dL (0.2-1.0) 12/27/20 05:22 AST 14 Units/L (15-37) L 12/27/20 05:22 ALT 10 Units/L (12-78) L 12/27/20 05:22 Alkaline Phosphatase 81 Units/L (46-116) 12/27/20 05:22 Creatine Kinase 89 Units/L (26-192) 12/21/20 13:07 CK-MB (CK-2) 1.1 ng/mL (0-4.0) 12/21/20 13:07 CK/CKMB % Calc 1.2 % (<4) 12/21/20 13:07 Troponin I < 0.02 ng/mL (0-1.5) 12/21/20 13:07 Total Protein 5.8 g/dL (6.4-8.2) L 12/27/20 05:22 Albumin 1.5 g/dL (3.4-5.0) L 12/27/20 05:22 Globulin 4.3 g/dL (2.5-4.5) 12/27/20 05:22 Albumin/Globulin Ratio 0.3 Ratio (1.1-2.1) L 12/27/20 05:22 Specimen Type Catherized urine 12/25/20 11:30 Urine Color Yellow (YELLOW) 12/25/20 11:30 Urine Appearance Cloudy (CLEAR) 12/25/20 11:30 Urine pH 5.0 (5.0 - 8.0) 12/25/20 11:30 Ur Specific [place] 1.015 (1.000-1.030) 12/25/20 11:30 Urine Protein 3+ (NEGATIVE) 12/25/20 11:30 Urine Glucose (UA) Negative (NEGATIVE) 12/25/20 11:30 Urine Ketones Negative (NEGATIVE) 12/25/20 11:30 Urine Occult Blood 4+ (NEGATIVE) 12/25/20 11:30 Urine Nitrite Negative (NEGATIVE) 12/25/20 11:30 Urine Bilirubin Negative (NEGATIVE) 12/25/20 11:30 Urine Urobilinogen Normal (NORMAL) 12/25/20 11:30 Ur Leukocyte Esterase 3+ (NEGATIVE) 12/25/20 11:30 Urine RBC 10-20 /HPF (0-3) A 12/25/20 11:30 Urine WBC Tntc /HPF (0-5) A 12/25/20 11:30 Ur Squamous Epith Cells Rare /HPF (NEGATIVE) 12/25/20 11:30 Urine Bacteria 2+ /HPF (NEGATIVE) 12/25/20 11:30 Ur Culture Indicated? Yes/culture set up 12/25/20 11:30 Vancomycin Trough 21.0 ug/mL (15-20) H* 12/26/20 06:16 Acetone, Semi-Quant Negative (NEGATIVE) 12/21/20 13:07 SARS-CoV-2 (PCR) Negative (NEGATIVE) 12/22/20 12:07 Influenza Type A (PCR) Negative (NEGATIVE) 12/22/20 12:07 Influenza Type B (PCR) Negative (NEGATIVE) 12/22/20 12:07 RSV (PCR) Negative (NEGATIVE) 12/22/20 12:07 Plan (1) Critical ischemia of lower extremity: Status: Chronic Plan: Vascular surgery following (2) Hypokalemia: Status: Acute Plan: replete per protocol KCl 40mEq BID (3) Hyperglycemia: Status: Acute Plan: restart Lantus SSI (4) Gangrene: Status: Acute (5) UTI (urinary tract infection): Status: Acute Plan: Rocephin, Urine culture pending (6) Cellulitis of right foot: Status: Acute
[2020-12-27] MEDS: MAGNESIUM SULFATE 1 GRAM/100 mL PREMIX 1 GM/100 ML BAG IV PRN ×2 (12:35→13:47)
[2020-12-27] MEDS: KLOR-CON PO PRN (16:35)
--- NOTE | 2020-12-27 18:22 | NOTE.SOAP ---
Soap Note Note for Day of Date of Exam: 12/27/20 Subjective Data Subjective Data: Doing well. Patient require right leg amputation which she is refusing at this point . Objective Data Temperature: 96.4 F Pulse Rate: 62 Respiratory Rate: 16 Blood Pressure: 128/58 O2 Sat by Pulse Oximetry: 96 Objective Data: Non -healing wound right heel 5 cm in diameter.Ischemic right leg Assessment Assessment: Ischemic right leg with non -healing wound right heel. Unable to re-establish arterial flow in PVI format. Not a candidate for long leg bypass. Plan Plan: Will discuss amputation with her family.
[2020-12-27] MEDS: COLACE CAP 100 MG PO SCH (21:10)
[2020-12-27] MEDS: REQUIP PO SCH (21:10)
[2020-12-27] MEDS: HumuLIN R SUBCUT PRN (21:12)
[2020-12-28] MEDS: D5 NS 1000 ML 1,000 ML IV SCH ×2 (03:43→16:53)
[2020-12-28 08:14] LABS: BASOPHILS % (AUTO) 0.5 % (0.2-1.0); EOSINOPHILS # (AUTO) 0.2 x10^3/uL (0.0-0.2); EOSINOPHILS % (AUTO) 2.8 % (0.9-2.9); HEMATOCRIT 29.1 % (36.0-47.0); HEMOGLOBIN 9.4 g/dL (12.0-16.0); LYMPHOCYTES # (AUTO) 1.6 X10^3/uL (1.3-2.9); LYMPHOCYTES % (AUTO) 23.8 % (21.0-51.0); MEAN CORPUSCULAR HEMOGLOBIN 26.4 pg (27.0-34.0); MEAN CORPUSCULAR HGB CONC 32.4 g/dL (33.0-35.0); MEAN CORPUSCULAR VOLUME 81.3 fL (80.0-100.0); MEAN PLATELET VOLUME 9.9 fL (7.4-11.0); MONOCYTES # (AUTO) 0.6 x10^3/uL (0.3-0.8); MONOCYTES % (AUTO) 8.5 % (0.0-13.0); NEUTROPHILS # (AUTO) 4.4 x10^3/uL (2.2-4.8); NEUTROPHILS % (AUTO) 64.4 % (42.0-75.0); PLATELET COUNT 276 X10^3/uL (150.0-450.0); RED BLOOD COUNT 3.59 X10^6/uL (3.5-5.4); RED CELL DISTRIBUTION WIDTH 16.3 % (11.6-16.5); WHITE BLOOD COUNT 6.9 X10^3/uL (3.6-10.0)
[2020-12-28] MEDS ORDERED: PHARMACY COMMENT IV ONE (08:30)
[2020-12-28 08:45] LABS: ALANINE AMINOTRANSFERASE 11 Units/L (12-78); ALBUMIN 1.6 g/dL (3.4-5.0); ALKALINE PHOSPHATASE 78 Units/L (46-116); ASPARTATE AMINO TRANSFERASE 16 Units/L (15-37); BLOOD UREA NITROGEN 10 mg/dL (7-18); CALCIUM 7.7 mg/dL (8.5-10.1); CARBON DIOXIDE 27.7 mmol/L (21-32); CHLORIDE 107 mmol/L (98-107); COR CA(FOR HYPOALB) 9.6 mg/dL (8.5-10.1); COR NA(FOR HYPERGLY) 142 mmol/L (136-145); CREATININE 0.77 mg/dL (0.55-1.02); SODIUM 141 mmol/L (136-145); TOTAL PROTEIN 6.2 g/dL (6.4-8.2); eGFR NON BLACK RACES > 60 (>60)
[2020-12-28] MEDS: SYNTHROID 25 mcg TAB PO SCH (09:37)
[2020-12-28] MEDS: PROTONIX TAB 40 MG PO SCH (09:37)
[2020-12-28] MEDS: NORVASC TAB 5 MG PO SCH (09:37)
[2020-12-28] MEDS: K-DUR TAB 20 MEQ PO SCH (09:38)
[2020-12-28] MEDS: LOVENOX INJ 40 MG SYR SC SCH (09:39)
[2020-12-28 10:29] LABS: CREATININE 0.83 mg/dL (0.55-1.02); VANCOMYCIN,TROUGH 14.8 ug/mL (15-20)
[2020-12-28] MEDS: VANCOMYCIN IV *PREMIX 750 mg/150 ML BAG 750 MG/150 ML PIGGYBACK IV SCH ×2 (10:44→20:48)
[2020-12-28] MEDS: TYLENOL 325 MG TAB PO PRN (10:51)
--- NOTE | 2020-12-28 13:48 | PCM.PROG ---
Progress Note Progress Note for Day of Date of Exam: 12/28/20 Subjective Subjective: Patient seen at bedside. No acute concerns. She is being seen by Vascular-Dr Taylor. Labs: WBC 6.9, Hgb 9.4, Plt 276, Na 141, K:4.3, Cr:0.83, Glucose 132 CXR: emphysema and chronic interstitial disease. Wound Cx: Proteus vulgaris, Klebsiella pneu, Staph aur. Blood Cx NGTD Urine Cx NGTD Plan: Continue potassium replacement as per protocol. Continue IV vancomycin and Zosyn. Continue current treatment and gentle hydration. Follow Vascular recommendations. Past Medical Family Social History Past Med/Fam/Surg Hx: No changes since H&P Allergies: Allergies No Known Drug Allergies Allergy (Verified 09/21/20 10:53) Review of Systems ROS: No change since H&P Vital Signs and I&O's Vital Signs: Temperature 98.9 F Pulse Rate [Right Brachial] 66 Pulse Rate 62 Respiratory Rate 16 Blood Pressure [Right Arm] 177/75 Blood Pressure [Left Arm] 138/65 Blood Pressure 128/58 O2 Sat by Pulse Oximetry 96 Intake and Output: Intake & Output 12/25/20 12/26/20 12/27/20 12/28/20 23:59 23:59 23:59 23:59 Intake Total 3140 / 3140 5432 / 5432 4451 / 4451 500 / 500 Output Total 4400 / 4400 5625 / 5625 4275 / 4275 475 / 475 Balance -1260 / -1260 -193 / -193 176 / 176 Physical Exam Oriented: Normal Eyes: Normal Ear: Normal Nose: Normal Throat: Normal Respiratory: Generalized and Diminished Cardiovascular: Normal : Normal Auscultation: Bowel Sounds: Normal Tenderness: Normal Skin: Wound (gangrene right toe) Musculoskeletal: Normal Psychiatric: Normal Mood Description: Calm Speech Pattern: Appropriate Laboratory and Diagnostics Result Diagrams: 12/28/20 06:37 12/28/20 09:48 Labs: 12/21/20 13:38 Blood Blood Culture - Final 12/21/20 13:33 Blood Blood Culture - Final 12/25/20 11:30 Urine,Catheterized Urine Culture - Final 12/23/20 10:39 Urine,Clean Catch Urine Culture - Final 12/21/20 13:55 Foot - Right Wound Gram Stain - Final 12/21/20 13:55 Foot - Right Wound Culture - Final Proteus Vulgaris Klebsiella Pneumoniae Staphylococcus Aureus Laboratory WBC 6.9 X10^3/uL (3.6-10.0) 12/28/20 06:37 RBC 3.59 X10^6/uL (3.5-5.4) 12/28/20 06:37 Hgb 9.4 g/dL (12.0-16.0) L 12/28/20 06:37 Hct 29.1 % (36.0-47.0) L 12/28/20 06:37 MCV 81.3 fL (80.0-100.0) 12/28/20 06:37 MCH 26.4 pg (27.0-34.0) L 12/28/20 06:37 MCHC 32.4 g/dL (33.0-35.0) L 12/28/20 06:37 RDW 16.3 % (11.6-16.5) 12/28/20 06:37 Plt Count 276 X10^3/uL (150.0-450.0) 12/28/20 06:37 MPV 9.9 fL (7.4-11.0) 12/28/20 06:37 Neut % (Auto) 64.4 % (42.0-75.0) 12/28/20 06:37 Lymph % (Auto) 23.8 % (21.0-51.0) 12/28/20 06:37 [place] % (Auto) 8.5 % (0.0-13.0) 12/28/20 06:37 Eos % (Auto) 2.8 % (0.9-2.9) 12/28/20 06:37 Baso % (Auto) 0.5 % (0.2-1.0) 12/28/20 06:37 Neut # (Auto) 4.4 x10^3/uL (2.2-4.8) 12/28/20 06:37 Lymph # (Auto) 1.6 X10^3/uL (1.3-2.9) 12/28/20 06:37 [place] # (Auto) 0.6 x10^3/uL (0.3-0.8) 12/28/20 06:37 Eos # (Auto) 0.2 x10^3/uL (0.0-0.2) 12/28/20 06:37 Baso # (Auto) 0.0 X10^3/uL (0.0-0.1) 12/28/20 06:37 Absolute Nucleated RBC 0.1 /100WBC 12/28/20 06:37 Sodium 141 mmol/L (136-145) 12/28/20 06:37 Corrected Sodium 142 mmol/L (136-145) 12/28/20 06:37 Potassium 4.3 mmol/L (3.5-5.1) 12/28/20 06:37 Chloride 107 mmol/L (98-107) 12/28/20 06:37 Carbon Dioxide 27.7 mmol/L (21-32) 12/28/20 06:37 BUN 10 mg/dL (7-18) 12/28/20 06:37 Creatinine 0.83 mg/dL (0.55-1.02) 12/28/20 09:48 Est GFR (MDRD) Af Amer > 60 (>60) 12/28/20 06:37 Est GFR (MDRD) Non-Af > 60 (>60) 12/28/20 06:37 Glucose 132 mg/dL (65-99) H 12/28/20 06:37 POC Glucose (mg/dL) 193 mg/dL (65-99) H 12/28/20 12:34 Calcium 7.7 mg/dL (8.5-10.1) L 12/28/20 06:37 Corrected Calcium 9.6 mg/dL (8.5-10.1) 12/28/20 06:37 Magnesium 2.1 mg/dL (1.7-2.9) 12/28/20 06:37 Total Bilirubin 0.20 mg/dL (0.2-1.0) 12/28/20 06:37 AST 16 Units/L (15-37) 12/28/20 06:37 ALT 11 Units/L (12-78) L 12/28/20 06:37 Alkaline Phosphatase 78 Units/L (46-116) 12/28/20 06:37 Creatine Kinase 89 Units/L (26-192) 12/21/20 13:07 CK-MB (CK-2) 1.1 ng/mL (0-4.0) 12/21/20 13:07 CK/CKMB % Calc 1.2 % (<4) 12/21/20 13:07 Troponin I < 0.02 ng/mL (0-1.5) 12/21/20 13:07 Total Protein 6.2 g/dL (6.4-8.2) L 12/28/20 06:37 Albumin 1.6 g/dL (3.4-5.0) L 12/28/20 06:37 Globulin 4.6 g/dL (2.5-4.5) H 12/28/20 06:37 Albumin/Globulin Ratio 0.3 Ratio (1.1-2.1) L 12/28/20 06:37 Specimen Type Catherized urine 12/25/20 11:30 Urine Color Yellow (YELLOW) 12/25/20 11:30 Urine Appearance Cloudy (CLEAR) 12/25/20 11:30 Urine pH 5.0 (5.0 - 8.0) 12/25/20 11:30 Ur Specific [place] 1.015 (1.000-1.030) 12/25/20 11:30 Urine Protein 3+ (NEGATIVE) 12/25/20 11:30 Urine Glucose (UA) Negative (NEGATIVE) 12/25/20 11:30 Urine Ketones Negative (NEGATIVE) 12/25/20 11:30 Urine Occult Blood 4+ (NEGATIVE) 12/25/20 11:30 Urine Nitrite Negative (NEGATIVE) 12/25/20 11:30 Urine Bilirubin Negative (NEGATIVE) 12/25/20 11:30 Urine Urobilinogen Normal (NORMAL) 12/25/20 11:30 Ur Leukocyte Esterase 3+ (NEGATIVE) 12/25/20 11:30 Urine RBC 10-20 /HPF (0-3) A 12/25/20 11:30 Urine WBC Tntc /HPF (0-5) A 12/25/20 11:30 Ur Squamous Epith Cells Rare /HPF (NEGATIVE) 12/25/20 11:30 Urine Bacteria 2+ /HPF (NEGATIVE) 12/25/20 11:30 Ur Culture Indicated? Yes/culture set up 12/25/20 11:30 Vancomycin Trough 14.8 ug/mL (15-20) L 12/28/20 09:48 Acetone, Semi-Quant Negative (NEGATIVE) 12/21/20 13:07 SARS-CoV-2 (PCR) Negative (NEGATIVE) 12/22/20 12:07 Influenza Type A (PCR) Negative (NEGATIVE) 12/22/20 12:07 Influenza Type B (PCR) Negative (NEGATIVE) 12/22/20 12:07 RSV (PCR) Negative (NEGATIVE) 12/22/20 12:07 Plan (1) Critical ischemia of lower extremity: Status: Chronic Plan: Vascular surgery following (2) Hypokalemia: Status: Acute Plan: replete per protocol KCl 40mEq BID (3) Hyperglycemia: Status: Acute Plan: restart Lantus SSI (4) Gangrene: Status: Acute (5) UTI (urinary tract infection): Status: Acute Plan: Rocephin, Urine culture pending (6) Cellulitis of right foot: Status: Acute
[2020-12-28] MEDS: ZOSYN VIAL 3.375 GRAMS 3.375 G in NS 100 ML IV + SPIKE MINIBAG* 100 ML IV SCH ×2 (13:52→21:25)
[2020-12-28] MEDS: NEURONTIN CAP 100 MG PO SCH ×2 (13:52→21:25)
[2020-12-28] MEDS: PERCOCET TAB 5/325 MG PO PRN (16:07)
[2020-12-28] MEDS: HumuLIN R SUBCUT PRN (16:49)
[2020-12-28] MEDS: COLACE CAP 100 MG PO SCH (20:48)
[2020-12-28] MEDS: REQUIP PO SCH (20:48)
--- NOTE | 2020-12-28 20:52 | NOTE.SOAP ---
Soap Note Note for Day of Date of Exam: 12/28/20 Subjective Data Subjective Data: No change Objective Data Temperature: 97.6 F Pulse Rate: 60 Respiratory Rate: 18 Blood Pressure: 133/61 O2 Sat by Pulse Oximetry: 95 Objective Data: No change in ischemic right foot with large heel ulcer Assessment Assessment: Will discuss amputation with her guardian who has POA. Plan Plan: see assessment
[2020-12-29] MEDS: ZOSYN VIAL 3.375 GRAMS 3.375 G in NS 100 ML IV + SPIKE MINIBAG* 100 ML IV SCH ×2 (05:38→07:34)
[2020-12-29] MEDS: D5 NS 1000 ML 1,000 ML IV SCH ×3 (05:38→19:11)
[2020-12-29] MEDS: NEURONTIN CAP 100 MG PO SCH ×4 (05:38→21:04)
[2020-12-29 06:15] LABS: BASOPHILS % (AUTO) 0.5 % (0.2-1.0); EOSINOPHILS # (AUTO) 0.2 x10^3/uL (0.0-0.2); EOSINOPHILS % (AUTO) 3.3 % (0.9-2.9); HEMATOCRIT 28.8 % (36.0-47.0); HEMOGLOBIN 9.4 g/dL (12.0-16.0); LYMPHOCYTES % (AUTO) 26.5 % (21.0-51.0); MEAN CORPUSCULAR HEMOGLOBIN 26.4 pg (27.0-34.0); MEAN CORPUSCULAR HGB CONC 32.5 g/dL (33.0-35.0); MEAN CORPUSCULAR VOLUME 81.4 fL (80.0-100.0); MEAN PLATELET VOLUME 9.8 fL (7.4-11.0); MONOCYTES # (AUTO) 0.6 x10^3/uL (0.3-0.8); MONOCYTES % (AUTO) 8.3 % (0.0-13.0); NEUTROPHILS # (AUTO) 4.6 x10^3/uL (2.2-4.8); NEUTROPHILS % (AUTO) 61.4 % (42.0-75.0); PLATELET COUNT 327 X10^3/uL (150.0-450.0); RED BLOOD COUNT 3.54 X10^6/uL (3.5-5.4); RED CELL DISTRIBUTION WIDTH 15.8 % (11.6-16.5); WHITE BLOOD COUNT 7.5 X10^3/uL (3.6-10.0)
[2020-12-29 06:47] LABS: ALANINE AMINOTRANSFERASE 11 Units/L (12-78); ALBUMIN 1.6 g/dL (3.4-5.0); ALKALINE PHOSPHATASE 81 Units/L (46-116); ASPARTATE AMINO TRANSFERASE 15 Units/L (15-37); BLOOD UREA NITROGEN 9 mg/dL (7-18); CALCIUM 7.9 mg/dL (8.5-10.1); CARBON DIOXIDE 26.6 mmol/L (21-32); CHLORIDE 108 mmol/L (98-107); COR CA(FOR HYPOALB) 9.8 mg/dL (8.5-10.1); COR NA(FOR HYPERGLY) 144 mmol/L (136-145); CREATININE 0.77 mg/dL (0.55-1.02); SODIUM 142 mmol/L (136-145); TOTAL PROTEIN 6.4 g/dL (6.4-8.2); eGFR NON BLACK RACES > 60 (>60)
[2020-12-29] MEDS: PROTONIX TAB 40 MG PO SCH (09:13)
[2020-12-29] MEDS: K-DUR TAB 20 MEQ PO SCH (09:13)
[2020-12-29] MEDS: NORVASC TAB 5 MG PO SCH (09:13)
[2020-12-29] MEDS: VANCOMYCIN IV *PREMIX 750 mg/150 ML BAG 750 MG/150 ML PIGGYBACK IV SCH (09:13)
[2020-12-29] MEDS: SYNTHROID 25 mcg TAB PO SCH (09:13)
[2020-12-29] MEDS: LOVENOX INJ 40 MG SYR SC SCH (09:22)
--- NOTE | 2020-12-29 11:42 | PCM.PROG ---
Progress Note Progress Note for Day of Date of Exam: 12/29/20 Subjective Subjective: Patient seen at bedside. No acute concerns. She is being seen by Vascular-Dr Taylor. Labs: WBC 7.5, Hgb 9.4, Plt 327, Na 142, K:4.0, Cr:0.77, Glucose 179 CXR: emphysema and chronic interstitial disease. Wound Cx: Proteus vulgaris, Klebsiella pneu, Staph aur. Blood Cx NGTD Urine Cx NGTD Plan: Leukocytosis back wnl, pt afebrile, will d/c IV vancomycin and Zosyn. Potassium level stabilized, medically stable. Vascular continue with management, will sign off. Past Medical Family Social History Past Med/Fam/Surg Hx: No changes since H&P Allergies: Allergies No Known Drug Allergies Allergy (Verified 09/21/20 10:53) Review of Systems ROS: No change since H&P Vital Signs and I&O's Vital Signs: Temperature 99.5 F Pulse Rate [Right Brachial] 70 Pulse Rate 60 Respiratory Rate 20 Blood Pressure [Right Arm] 177/75 Blood Pressure [Left Arm] 181/80 Blood Pressure 133/61 O2 Sat by Pulse Oximetry 95 Intake and Output: Intake & Output 12/26/20 12/27/20 12/28/20 12/29/20 23:59 23:59 23:59 23:59 Intake Total 5432 / 5432 4451 / 4451 3184 / 3184 545 / 545 Output Total 5625 / 5625 4275 / 4275 2475 / 2475 1999 Balance -193 / -193 176 / 176 709 / 709 -1455 / -1455 Physical Exam Oriented: Normal Eyes: Normal Ear: Normal Nose: Normal Throat: Normal Respiratory: Generalized and Diminished Cardiovascular: Normal : Normal Auscultation: Bowel Sounds: Normal Tenderness: Normal Skin: Wound (gangrene right toe) Musculoskeletal: Normal Psychiatric: Normal Mood Description: Calm Speech Pattern: Appropriate Laboratory and Diagnostics Result Diagrams: 12/29/20 05:40 12/29/20 05:40 Labs: 12/21/20 13:38 Blood Blood Culture - Final 12/21/20 13:33 Blood Blood Culture - Final 12/25/20 11:30 Urine,Catheterized Urine Culture - Final 12/23/20 10:39 Urine,Clean Catch Urine Culture - Final 12/21/20 13:55 Foot - Right Wound Gram Stain - Final 12/21/20 13:55 Foot - Right Wound Culture - Final Proteus Vulgaris Klebsiella Pneumoniae Staphylococcus Aureus Laboratory WBC 7.5 X10^3/uL (3.6-10.0) 12/29/20 05:40 RBC 3.54 X10^6/uL (3.5-5.4) 12/29/20 05:40 Hgb 9.4 g/dL (12.0-16.0) L 12/29/20 05:40 Hct 28.8 % (36.0-47.0) L 12/29/20 05:40 MCV 81.4 fL (80.0-100.0) 12/29/20 05:40 MCH 26.4 pg (27.0-34.0) L 12/29/20 05:40 MCHC 32.5 g/dL (33.0-35.0) L 12/29/20 05:40 RDW 15.8 % (11.6-16.5) 12/29/20 05:40 Plt Count 327 X10^3/uL (150.0-450.0) 12/29/20 05:40 MPV 9.8 fL (7.4-11.0) 12/29/20 05:40 Neut % (Auto) 61.4 % (42.0-75.0) 12/29/20 05:40 Lymph % (Auto) 26.5 % (21.0-51.0) 12/29/20 05:40 [place] % (Auto) 8.3 % (0.0-13.0) 12/29/20 05:40 Eos % (Auto) 3.3 % (0.9-2.9) H 12/29/20 05:40 Baso % (Auto) 0.5 % (0.2-1.0) 12/29/20 05:40 Neut # (Auto) 4.6 x10^3/uL (2.2-4.8) 12/29/20 05:40 Lymph # (Auto) 2.0 X10^3/uL (1.3-2.9) 12/29/20 05:40 [place] # (Auto) 0.6 x10^3/uL (0.3-0.8) 12/29/20 05:40 Eos # (Auto) 0.2 x10^3/uL (0.0-0.2) 12/29/20 05:40 Baso # (Auto) 0.0 X10^3/uL (0.0-0.1) 12/29/20 05:40 Absolute Nucleated RBC 0.0 /100WBC 12/29/20 05:40 Sodium 142 mmol/L (136-145) 12/29/20 05:40 Corrected Sodium 144 mmol/L (136-145) 12/29/20 05:40 Potassium 4.0 mmol/L (3.5-5.1) 12/29/20 05:40 Chloride 108 mmol/L (98-107) H 12/29/20 05:40 Carbon Dioxide 26.6 mmol/L (21-32) 12/29/20 05:40 BUN 9 mg/dL (7-18) 12/29/20 05:40 Creatinine 0.77 mg/dL (0.55-1.02) 12/29/20 05:40 Est GFR (MDRD) Af Amer > 60 (>60) 12/29/20 05:40 Est GFR (MDRD) Non-Af > 60 (>60) 12/29/20 05:40 Glucose 179 mg/dL (65-99) H 12/29/20 05:40 POC Glucose (mg/dL) 159 mg/dL (65-99) H 12/29/20 05:49 Calcium 7.9 mg/dL (8.5-10.1) L 12/29/20 05:40 Corrected Calcium 9.8 mg/dL (8.5-10.1) 12/29/20 05:40 Magnesium 2.1 mg/dL (1.7-2.9) 12/28/20 06:37 Total Bilirubin 0.20 mg/dL (0.2-1.0) 12/29/20 05:40 AST 15 Units/L (15-37) 12/29/20 05:40 ALT 11 Units/L (12-78) L 12/29/20 05:40 Alkaline Phosphatase 81 Units/L (46-116) 12/29/20 05:40 Creatine Kinase 89 Units/L (26-192) 12/21/20 13:07 CK-MB (CK-2) 1.1 ng/mL (0-4.0) 12/21/20 13:07 CK/CKMB % Calc 1.2 % (<4) 12/21/20 13:07 Troponin I < 0.02 ng/mL (0-1.5) 12/21/20 13:07 Total Protein 6.4 g/dL (6.4-8.2) 12/29/20 05:40 Albumin 1.6 g/dL (3.4-5.0) L 12/29/20 05:40 Globulin 4.8 g/dL (2.5-4.5) H 12/29/20 05:40 Albumin/Globulin Ratio 0.3 Ratio (1.1-2.1) L 12/29/20 05:40 Specimen Type Catherized urine 12/25/20 11:30 Urine Color Yellow (YELLOW) 12/25/20 11:30 Urine Appearance Cloudy (CLEAR) 12/25/20 11:30 Urine pH 5.0 (5.0 - 8.0) 12/25/20 11:30 Ur Specific [place] 1.015 (1.000-1.030) 12/25/20 11:30 Urine Protein 3+ (NEGATIVE) 12/25/20 11:30 Urine Glucose (UA) Negative (NEGATIVE) 12/25/20 11:30 Urine Ketones Negative (NEGATIVE) 12/25/20 11:30 Urine Occult Blood 4+ (NEGATIVE) 12/25/20 11:30 Urine Nitrite Negative (NEGATIVE) 12/25/20 11:30 Urine Bilirubin Negative (NEGATIVE) 12/25/20 11:30 Urine Urobilinogen Normal (NORMAL) 12/25/20 11:30 Ur Leukocyte Esterase 3+ (NEGATIVE) 12/25/20 11:30 Urine RBC 10-20 /HPF (0-3) A 12/25/20 11:30 Urine WBC Tntc /HPF (0-5) A 12/25/20 11:30 Ur Squamous Epith Cells Rare /HPF (NEGATIVE) 12/25/20 11:30 Urine Bacteria 2+ /HPF (NEGATIVE) 12/25/20 11:30 Ur Culture Indicated? Yes/culture set up 12/25/20 11:30 Vancomycin Trough 14.8 ug/mL (15-20) L 12/28/20 09:48 Acetone, Semi-Quant Negative (NEGATIVE) 12/21/20 13:07 SARS-CoV-2 (PCR) Negative (NEGATIVE) 12/22/20 12:07 Influenza Type A (PCR) Negative (NEGATIVE) 12/22/20 12:07 Influenza Type B (PCR) Negative (NEGATIVE) 12/22/20 12:07 RSV (PCR) Negative (NEGATIVE) 12/22/20 12:07 Plan (1) Critical ischemia of lower extremity: Status: Chronic Plan: Vascular surgery following (2) Hypokalemia: Status: Acute Plan: replete per protocol KCl 40mEq BID (3) Hyperglycemia: Status: Acute Plan: restart Lantus SSI (4) Gangrene: Status: Acute (5) UTI (urinary tract infection): Status: Acute Plan: Rocephin, Urine culture pending (6) Cellulitis of right foot: Status: Acute
[2020-12-29] MEDS: PERCOCET TAB 5/325 MG PO PRN (14:35)
[2020-12-29] MEDS: HumuLIN R SUBCUT PRN ×2 (17:28→21:13)
[2020-12-29] MEDS ORDERED: CATAPRES TAB 0.1 MG PO ONE (18:12)
--- NOTE | 2020-12-29 18:20 | NOTE.SOAP ---
Soap Note Note for Day of Date of Exam: 12/29/20 Subjective Data Subjective Data: 80 yo female with significant peripheral vascular disease bilaterally. She has had atherectomy and drug-coated balloon angioplasty of the right superficial femoral artery and right popliteal artery as well as balloon angioplasty of distal vessels for ankle brachial index of 0.15 and nonhealing wound to the right heel. Patient noted to have ankle brachial index of 0.29 on the left and was to be seen as an outpatient for intervention left leg and presented to same-day surgery with a low potassium an elevated blood sugar. At that time I suspected the right leg had re-occluded and indeed it had on imaging studies. Attempt to re- vascularize the right leg in peripheral fashion was unsuccessful. Patient does not ambulate. I believe she will require an amputation of the right leg. She has a metal prosthesis in the right femur. Although the left leg has significant but the problem she denies rest pain and has no tissue loss here. In addition to the heel wound on the right she also has early tissue loss of the right great toe and 2nd toe. The patient is reported to have dementia and does have a power of disability attorney whom I have spoken with. Is unsure whether she is been declared mentally incompetent and cannot make a medical decision for herself however. She adamantly refuses amputation of the right leg. She is oriented only to person. She is bedridden. Objective Data Temperature: 97.6 F Pulse Rate: 76 Respiratory Rate: 18 Blood Pressure: 200/81 Objective Data: Nonhealing wound to the right heel with early gangrenous changes of the right great toe and 2nd toe with significant pain. Assessment Assessment: Will require right below knee amputation as she has right femoral prosthesis but I believe this will heal. At this point it is a question as to who make her medical decisions. Plan Plan: Continue local wound care. Will have her POA talk to her in person to see if she will agree to right below knee amputation. If she does not then she will be discharged.
[2020-12-29] MEDS: COLACE CAP 100 MG PO SCH (21:03)
[2020-12-29] MEDS: REQUIP PO SCH (21:04)
[2020-12-30] MEDS: D5 NS 1000 ML 1,000 ML IV SCH ×3 (04:33→21:33)
[2020-12-30] MEDS: NEURONTIN CAP 100 MG PO SCH ×3 (05:28→21:38)
[2020-12-30] MEDS: HumuLIN R SUBCUT PRN ×3 (06:04→17:07)
[2020-12-30 06:25] LABS: BASOPHILS # (AUTO) 0.1 X10^3/uL (0.0-0.1); BASOPHILS % (AUTO) 0.8 % (0.2-1.0); EOSINOPHILS # (AUTO) 0.2 x10^3/uL (0.0-0.2); EOSINOPHILS % (AUTO) 2.4 % (0.9-2.9); HEMATOCRIT 27.6 % (36.0-47.0); HEMOGLOBIN 8.9 g/dL (12.0-16.0); LYMPHOCYTES % (AUTO) 29.4 % (21.0-51.0); MEAN CORPUSCULAR HEMOGLOBIN 26.3 pg (27.0-34.0); MEAN CORPUSCULAR HGB CONC 32.3 g/dL (33.0-35.0); MEAN CORPUSCULAR VOLUME 81.2 fL (80.0-100.0); MEAN PLATELET VOLUME 9.4 fL (7.4-11.0); MONOCYTES # (AUTO) 0.5 x10^3/uL (0.3-0.8); MONOCYTES % (AUTO) 6.9 % (0.0-13.0); NEUTROPHILS # (AUTO) 4.2 x10^3/uL (2.2-4.8); NEUTROPHILS % (AUTO) 60.5 % (42.0-75.0); PLATELET COUNT 331 X10^3/uL (150.0-450.0); RED CELL DISTRIBUTION WIDTH 16.1 % (11.6-16.5); WHITE BLOOD COUNT 6.9 X10^3/uL (3.6-10.0)
[2020-12-30 06:44] LABS: ALANINE AMINOTRANSFERASE 12 Units/L (12-78); ALBUMIN 1.5 g/dL (3.4-5.0); ALKALINE PHOSPHATASE 79 Units/L (46-116); ASPARTATE AMINO TRANSFERASE 20 Units/L (15-37); BLOOD UREA NITROGEN 9 mg/dL (7-18); CALCIUM 7.6 mg/dL (8.5-10.1); CARBON DIOXIDE 27.7 mmol/L (21-32); CHLORIDE 107 mmol/L (98-107); COR CA(FOR HYPOALB) 9.6 mg/dL (8.5-10.1); COR NA(FOR HYPERGLY) 143 mmol/L (136-145); CREATININE 0.71 mg/dL (0.55-1.02); SODIUM 140 mmol/L (136-145); eGFR NON BLACK RACES > 60 (>60)
[2020-12-30] MEDS: SYNTHROID 25 mcg TAB PO SCH (09:24)
[2020-12-30] MEDS: K-DUR TAB 20 MEQ PO SCH (09:26)
[2020-12-30] MEDS: NORVASC TAB 5 MG PO SCH (09:26)
[2020-12-30] MEDS: PROTONIX TAB 40 MG PO SCH (09:27)
[2020-12-30] MEDS: LOVENOX INJ 40 MG SYR SC SCH (09:31)
[2020-12-30] MEDS: PERCOCET TAB 5/325 MG PO PRN (09:43)
--- NOTE | 2020-12-30 17:34 | NOTE.SOAP ---
Soap Note Note for Day of Date of Exam: 12/30/20 Subjective Data Subjective Data: Patient has agreed to right below knee amputation. She has signed the permit . Objective Data Temperature: 97.8 F Pulse Rate: 60 Respiratory Rate: 18 Blood Pressure: 91/45 O2 Sat by Pulse Oximetry: 96 Objective Data: Non healing wound right heel, Gangrenous changes of right great toe and second toe Assessment Assessment: critical ischemia right lower extremity. Plan Plan: right below knee amputation scheduled for tomorrow.
[2020-12-30] MEDS: COLACE CAP 100 MG PO SCH (21:38)
[2020-12-30] MEDS: REQUIP PO SCH (21:38)
[2020-12-31] MEDS: NEURONTIN CAP 100 MG PO SCH ×3 (06:08→21:30)
[2020-12-31 06:49] LABS: BASOPHILS % (AUTO) 0.6 % (0.2-1.0); EOSINOPHILS # (AUTO) 0.1 x10^3/uL (0.0-0.2); EOSINOPHILS % (AUTO) 1.4 % (0.9-2.9); HEMATOCRIT 30.8 % (36.0-47.0); LYMPHOCYTES # (AUTO) 2.1 X10^3/uL (1.3-2.9); LYMPHOCYTES % (AUTO) 28.1 % (21.0-51.0); MEAN CORPUSCULAR HEMOGLOBIN 26.1 pg (27.0-34.0); MEAN CORPUSCULAR HGB CONC 32.3 g/dL (33.0-35.0); MEAN CORPUSCULAR VOLUME 80.8 fL (80.0-100.0); MEAN PLATELET VOLUME 9.6 fL (7.4-11.0); MONOCYTES # (AUTO) 0.5 x10^3/uL (0.3-0.8); MONOCYTES % (AUTO) 6.9 % (0.0-13.0); NEUTROPHILS # (AUTO) 4.7 x10^3/uL (2.2-4.8); PLATELET COUNT 364 X10^3/uL (150.0-450.0); RED BLOOD COUNT 3.82 X10^6/uL (3.5-5.4); RED CELL DISTRIBUTION WIDTH 16.1 % (11.6-16.5); WHITE BLOOD COUNT 7.5 X10^3/uL (3.6-10.0)
[2020-12-31 07:11] LABS: ALANINE AMINOTRANSFERASE 12 Units/L (12-78); ALBUMIN 1.7 g/dL (3.4-5.0); ALKALINE PHOSPHATASE 89 Units/L (46-116); ASPARTATE AMINO TRANSFERASE 18 Units/L (15-37); BLOOD UREA NITROGEN 8 mg/dL (7-18); CALCIUM 8.4 mg/dL (8.5-10.1); CARBON DIOXIDE 24.6 mmol/L (21-32); CHLORIDE 109 mmol/L (98-107); COR CA(FOR HYPOALB) 10.2 mg/dL (8.5-10.1); COR NA(FOR HYPERGLY) 145 mmol/L (136-145); CREATININE 0.59 mg/dL (0.55-1.02); SODIUM 143 mmol/L (136-145); TOTAL PROTEIN 6.7 g/dL (6.4-8.2); eGFR NON BLACK RACES > 60 (>60)
[2020-12-31] MEDS: LOVENOX INJ 40 MG SYR SC SCH (09:17)
[2020-12-31] MEDS: NORVASC TAB 5 MG PO SCH (09:18)
[2020-12-31] MEDS: K-DUR TAB 20 MEQ PO SCH (09:18)
[2020-12-31] MEDS: SYNTHROID 25 mcg TAB PO SCH (09:18)
[2020-12-31] MEDS: PROTONIX TAB 40 MG PO SCH (09:18)
--- NOTE | 2020-12-31 14:38 | PCM.DCPLAN ---
DISCHARGE SUMMARY Admission Date Date of Admission: 12/22/20 Discharge Date Discharge Date: 12/31/20 Admission Diagnoses (1) Critical ischemia of lower extremity: Status: Chronic (2) Hypokalemia: Status: Acute (3) Hyperglycemia: Status: Acute (4) Gangrene: Status: Acute (5) UTI (urinary tract infection): Status: Acute (6) Cellulitis of right foot: Status: Acute Discharge Diagnoses Discharge Diagnosis: same Discharge Medications Discharge Medications: Home Medication List aspirin 81 mg PO DAILY 12/21/20 [History] Prescriptions: Hospital Course Vital Signs: Temperature 98.3 F Pulse Rate [Right Brachial] 70 Pulse Rate 60 Respiratory Rate 18 Blood Pressure [Right Arm] 188/77 Blood Pressure [Left Arm] 151/67 Blood Pressure 91/45 O2 Sat by Pulse Oximetry 96 Latest Lab Results: Laboratory Last Values WBC 7.5 X10^3/uL (3.6-10.0) 12/31/20 05:30 RBC 3.82 X10^6/uL (3.5-5.4) 12/31/20 05:30 Hgb 10.0 g/dL (12.0-16.0) L 12/31/20 05:30 Hct 30.8 % (36.0-47.0) L 12/31/20 05:30 MCV 80.8 fL (80.0-100.0) 12/31/20 05:30 MCH 26.1 pg (27.0-34.0) L 12/31/20 05:30 MCHC 32.3 g/dL (33.0-35.0) L 12/31/20 05:30 RDW 16.1 % (11.6-16.5) 12/31/20 05:30 Plt Count 364 X10^3/uL (150.0-450.0) 12/31/20 05:30 MPV 9.6 fL (7.4-11.0) 12/31/20 05:30 Neut % (Auto) 63.0 % (42.0-75.0) 12/31/20 05:30 Lymph % (Auto) 28.1 % (21.0-51.0) 12/31/20 05:30 [place] % (Auto) 6.9 % (0.0-13.0) 12/31/20 05:30 Eos % (Auto) 1.4 % (0.9-2.9) 12/31/20 05:30 Baso % (Auto) 0.6 % (0.2-1.0) 12/31/20 05:30 Neut # (Auto) 4.7 x10^3/uL (2.2-4.8) 12/31/20 05:30 Lymph # (Auto) 2.1 X10^3/uL (1.3-2.9) 12/31/20 05:30 [place] # (Auto) 0.5 x10^3/uL (0.3-0.8) 12/31/20 05:30 Eos # (Auto) 0.1 x10^3/uL (0.0-0.2) 12/31/20 05:30 Baso # (Auto) 0.0 X10^3/uL (0.0-0.1) 12/31/20 05:30 Absolute Nucleated RBC 0.1 /100WBC 12/31/20 05:30 Sodium 143 mmol/L (136-145) 12/31/20 05:30 Corrected Sodium 145 mmol/L (136-145) 12/31/20 05:30 Potassium 3.7 mmol/L (3.5-5.1) 12/31/20 05:30 Chloride 109 mmol/L (98-107) H 12/31/20 05:30 Carbon Dioxide 24.6 mmol/L (21-32) 12/31/20 05:30 BUN 8 mg/dL (7-18) 12/31/20 05:30 Creatinine 0.59 mg/dL (0.55-1.02) 12/31/20 05:30 Est GFR (MDRD) Af Amer > 60 (>60) 12/31/20 05:30 Est GFR (MDRD) Non-Af > 60 (>60) 12/31/20 05:30 Glucose 172 mg/dL (65-99) H 12/31/20 05:30 POC Glucose (mg/dL) 154 mg/dL (65-99) H 12/31/20 11:42 Calcium 8.4 mg/dL (8.5-10.1) L 12/31/20 05:30 Corrected Calcium 10.2 mg/dL (8.5-10.1) H 12/31/20 05:30 Magnesium 2.1 mg/dL (1.7-2.9) 12/28/20 06:37 Total Bilirubin 0.10 mg/dL (0.2-1.0) L 12/31/20 05:30 AST 18 Units/L (15-37) 12/31/20 05:30 ALT 12 Units/L (12-78) 12/31/20 05:30 Alkaline Phosphatase 89 Units/L (46-116) 12/31/20 05:30 Creatine Kinase 89 Units/L (26-192) 12/21/20 13:07 CK-MB (CK-2) 1.1 ng/mL (0-4.0) 12/21/20 13:07 CK/CKMB % Calc 1.2 % (<4) 12/21/20 13:07 Troponin I < 0.02 ng/mL (0-1.5) 12/21/20 13:07 Total Protein 6.7 g/dL (6.4-8.2) 12/31/20 05:30 Albumin 1.7 g/dL (3.4-5.0) L 12/31/20 05:30 Globulin 5.0 g/dL (2.5-4.5) H 12/31/20 05:30 Albumin/Globulin Ratio 0.3 Ratio (1.1-2.1) L 12/31/20 05:30 Specimen Type Catherized urine 12/25/20 11:30 Urine Color Yellow (YELLOW) 12/25/20 11:30 Urine Appearance Cloudy (CLEAR) 12/25/20 11:30 Urine pH 5.0 (5.0 - 8.0) 12/25/20 11:30 Ur Specific [place] 1.015 (1.000-1.030) 12/25/20 11:30 Urine Protein 3+ (NEGATIVE) 12/25/20 11:30 Urine Glucose (UA) Negative (NEGATIVE) 12/25/20 11:30 Urine Ketones Negative (NEGATIVE) 12/25/20 11:30 Urine Occult Blood 4+ (NEGATIVE) 12/25/20 11:30 Urine Nitrite Negative (NEGATIVE) 12/25/20 11:30 Urine Bilirubin Negative (NEGATIVE) 12/25/20 11:30 Urine Urobilinogen Normal (NORMAL) 12/25/20 11:30 Ur Leukocyte Esterase 3+ (NEGATIVE) 12/25/20 11:30 Urine RBC 10-20 /HPF (0-3) A 12/25/20 11:30 Urine WBC Tntc /HPF (0-5) A 12/25/20 11:30 Ur Squamous Epith Cells Rare /HPF (NEGATIVE) 12/25/20 11:30 Urine Bacteria 2+ /HPF (NEGATIVE) 12/25/20 11:30 Ur Culture Indicated? Yes/culture set up 12/25/20 11:30 Vancomycin Trough 14.8 ug/mL (15-20) L 12/28/20 09:48 Acetone, Semi-Quant Negative (NEGATIVE) 12/21/20 13:07 SARS-CoV-2 (PCR) Negative (NEGATIVE) 12/22/20 12:07 Influenza Type A (PCR) Negative (NEGATIVE) 12/22/20 12:07 Influenza Type B (PCR) Negative (NEGATIVE) 12/22/20 12:07 RSV (PCR) Negative (NEGATIVE) 12/22/20 12:07 Hospital Course: This 80-year-old female with significant ischemia both lower extremities and ankle brachial index on the right side of 0.15 and on the left of 0.29 had intervention with atherectomy and drug-coated balloon angioplasty of the right superficial femoral and popliteal artery on September 21, 2020 . She was supposed to be admitted on one 12/22 to have the left side done but was noted to have a potassium 2.4 and a blood sugar in excess of 600. She was admitted him he consult to the hospitalist service to correct these problems. She was noted to have significant problem of the right leg is no pulses could be palpated as before. 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 She was taken to the operating suite multiple attempts to re- establish arterial flow in the right leg but they were all unsuccessful. The patient nonambulatory and I recommended a right below knee amputation as she has a femoral ewa in the right side. She has a medical power of compliance attorney but it explicitly states that she can still make your own decisions if he chooses to. She has never been declared incompetent although she does the time of dementia. She had agreed to the right of habitation but by her own admission " changed my mind". She will be discharged home on her usual medications and dressing changes I will see her in the office in 2 weeks. Ultimately I think she will require amputation of the right leg Instructions Instructions: Hypokalemia Gangrene Hyperglycemia, [id number] Leg Amputation Cellulitis, Adult, [id number] Forms: Precautions for COVID19 Patient Portal Social Distancing
[2020-12-31] MEDS: PERCOCET TAB 5/325 MG PO PRN (17:12)
[2020-12-31] MEDS: D5 NS 1000 ML 1,000 ML IV SCH (17:13)
[2020-12-31] MEDS: HumuLIN R SUBCUT PRN (17:38)
[2020-12-31] MEDS: COLACE CAP 100 MG PO SCH (21:30)
[2020-12-31] MEDS: REQUIP PO SCH (21:30)
[2021-01-01] MEDS: NEURONTIN CAP 100 MG PO SCH (05:58)
[2021-01-01] MEDS: D5 NS 1000 ML 1,000 ML IV SCH (05:59)
[2021-01-01 06:40] LABS: BASOPHILS # (AUTO) 0.1 X10^3/uL (0.0-0.1); BASOPHILS % (AUTO) 0.7 % (0.2-1.0); EOSINOPHILS # (AUTO) 0.1 x10^3/uL (0.0-0.2); EOSINOPHILS % (AUTO) 1.9 % (0.9-2.9); HEMATOCRIT 29.5 % (36.0-47.0); HEMOGLOBIN 9.5 g/dL (12.0-16.0); LYMPHOCYTES % (AUTO) 25.5 % (21.0-51.0); MEAN CORPUSCULAR HEMOGLOBIN 26.1 pg (27.0-34.0); MEAN CORPUSCULAR HGB CONC 32.3 g/dL (33.0-35.0); MEAN PLATELET VOLUME 9.4 fL (7.4-11.0); MONOCYTES # (AUTO) 0.6 x10^3/uL (0.3-0.8); MONOCYTES % (AUTO) 8.2 % (0.0-13.0); NEUTROPHILS # (AUTO) 4.9 x10^3/uL (2.2-4.8); NEUTROPHILS % (AUTO) 63.7 % (42.0-75.0); PLATELET COUNT 389 X10^3/uL (150.0-450.0); RED BLOOD COUNT 3.64 X10^6/uL (3.5-5.4); RED CELL DISTRIBUTION WIDTH 16.5 % (11.6-16.5); WHITE BLOOD COUNT 7.8 X10^3/uL (3.6-10.0)
[2021-01-01 06:54] LABS: ALANINE AMINOTRANSFERASE 10 Units/L (12-78); ALBUMIN 1.7 g/dL (3.4-5.0); ALKALINE PHOSPHATASE 83 Units/L (46-116); ASPARTATE AMINO TRANSFERASE 13 Units/L (15-37); BLOOD UREA NITROGEN 8 mg/dL (7-18); CALCIUM 8.2 mg/dL (8.5-10.1); CARBON DIOXIDE 26.9 mmol/L (21-32); CHLORIDE 108 mmol/L (98-107); COR NA(FOR HYPERGLY) 143 mmol/L (136-145); CREATININE 0.65 mg/dL (0.55-1.02); SODIUM 142 mmol/L (136-145); TOTAL PROTEIN 6.6 g/dL (6.4-8.2); eGFR NON BLACK RACES > 60 (>60)
[2021-01-01] MEDS: PERCOCET TAB 5/325 MG PO PRN (09:24)
[2021-01-01] MEDS: PROTONIX TAB 40 MG PO SCH (09:24)
[2021-01-01] MEDS: SYNTHROID 25 mcg TAB PO SCH (09:24)
[2021-01-01] MEDS: LOVENOX INJ 40 MG SYR SC SCH (09:24)
[2021-01-01] MEDS: NORVASC TAB 5 MG PO SCH (09:25)
[2021-01-01] MEDS: K-DUR TAB 20 MEQ PO SCH (09:25)
[2021-01-01 09:42] VITALS: BP 154/67
== END 2021-01-01 13:10 | disposition home health service (06) | DRG 300 ==
LOC: ER 12:49 → MED/SURG 16:10
PROVIDERS: ADMIT Surgery; ATTEND Surgery
DX: I70.222 Atherosclerosis of native arteries of extremities with rest pain, left leg; Z20.822 Contact with and (suspected) exposure to COVID-19; I70.261 Atherosclerosis of native arteries of extremities with gangrene, right leg; E11.52 Type 2 diabetes mellitus with diabetic peripheral angiopathy with gangrene; L97.418 Non-pressure chronic ulcer of right heel and midfoot with other specified severity; E87.6 Hypokalemia; I10 Essential (primary) hypertension; B95.61 Methicillin susceptible Staphylococcus aureus infection as the cause of diseases classified elsewhere; B96.4 Proteus (mirabilis) (morganii) as the cause of diseases classified elsewhere; E11.65 Type 2 diabetes mellitus with hyperglycemia; B96.1 Klebsiella pneumoniae [K. pneumoniae] as the cause of diseases classified elsewhere; K21.9 Gastro-esophageal reflux disease without esophagitis; L03.115 Cellulitis of right lower limb; N39.0 Urinary tract infection, site not specified

== ENCOUNTER 2021-02-01 15:00 | Inpatient (IN) ==
--- NOTE | 2021-02-01 16:35 | DR.EXTPAIN ---
HPI Time seen Time Seen by Provider: 02/01/21 16:31 PCP Primary Care Physician: SACHIN HPI Comment HPI Comment: Pt is brougt to Er by family members from right leg pain that has slowly worsened .Pt was seen by Dr Taylor vascular surgery in the past . Due to ischemic right leg was advised above the knee amputation .Pt refused but now wants to be have it taken care of due to excessive pain Complaint/Symptoms Chief Complaint Doctor Comments: right heel gangrene Chief Complaint:: PT'S FAMILY MEMBER STATES PT HAS BEEN BATTLING SWELLING TO HER RLE AND NECROSIS OF RT GREAT TOE. PT'S FAMILY STATES SHE HAS HAD A HOSPITALIZATION FOR WHICH PATIENT WAS TO HAVE A AMPUTATION. PT'S FAMILY STATES PT DENIED HAVING SURGERY. PT'S FAMILY STATES PT HAS TO HAVE THIS SEEN ABOUT. NOTED SWELLING TO RLE WITH REDNESS AND NECROSIS TO RT GREAT TOE. COVID-19 Coronavirus risk:travel/contact w/high risk person: No Has patient experienced Coronavirus symptoms: No Nurses notes reviewed Nurses Notes Review: Yes Source History Provided: Patient and Family Member Mode of arrival Mode of Arrival: Wheelchair Timing Onset of Chief Complaint: 01/02/21 Context History of: None Associated signs and symptoms Associated Signs and Symptoms: Palipitations and Other (right foot and leg pain ) PMH PMH Past Medical History: Yes Past Medical History: Dementia and Diabetes Past Surgical History: Yes Surgical History: Other Family History History of Family Medical Conditions: Yes Family Medical History: Diabetes Mellitus Social History Does patient currently use any type of tobacco product: Yes Have you used tobacco products in the last 12 months: Yes Type of Tobacco Use: Cigarettes Does any household member use tobacco: Yes Alcohol Use: None Do you use any recreational Drugs:: No Lives With: Family Lives Where: Home Travel Risk Coronavirus risk:travel/contact w/high risk person: No Has patient experienced Coronavirus symptoms: No Infectious screening In the last 2 months have you had wt loss of >10#?: NO Have you had fever, night sweats or hemotysis?: No Have you traveled outside the country in the last 6 months?: No Isolation: Standard ROS Review of Systems Constitutional: No Symptoms Reported, Malaise and Fatigue Eyes: No Symptoms Reported ENTM: No Symptoms Reported Respiratoy: No Symptoms Reported Cardiovascular: No Symptoms Reported Gastrointestinal/Abdominal: No Symptoms Reported Neurological: No Symptoms Reported Musculoskeletal: Leg and Foot Integumentary: See HPI Hematologic/Lymphatic: See HPI Psychiatric: No Symptoms Reported PE Vital Signs Vitals: Temperature 98.9 F Pulse Rate 78 Respiratory Rate 20 Blood Pressure [Right Arm] 154/67 Blood Pressure [Left Arm] 151/67 Blood Pressure 100/49 O2 Sat by Pulse Oximetry 95 General Limitations: No Limitations General Appearance: Alert and In No Apparent Distress Head Head Exam: Other (temporal wasting) Eyes Eye exam: PERRL and EOMI ENT ENT Exam: Mucous Membranes Moist Neck Neck Exam: Full ROM Chest Chest Inspection: Normal Inspection and Symmetric Chest Wall Rise Respiratory Respiratory Exam: Normal Lung Sounds Bilat Respiratory Exam: Bilateral: Clear to Auscultation Cardiovascular Cardiovascular Exam: +S1 and +S2 Abdominal Exam Abdominal Exam: Normal Bowel Sounds and Soft Other Exam Other Exam: lower ext pos dry gangrene right toe and back of the heeel pos leg and feet sweelling no warm to touch MDM Differential Diagnosis Differential Diagnosis: Other (right ischemic leg ) COURSE Treatment Treatment: spoke with Dr Taylor and he has also seen patient in ER and spoken with family .would like to have patient admitted to the hospital for possible above the knee amputation Opioid Opioid Risk Tool Age (Nitin box if 16-45): No History of Preadolescent Sexual Abuse: No Total: 0 Total Score Risk Category: Low Risk Copyright: Tariq GALAN predicting aberrant behaviors Diagnosis Discharge Problem: Critical ischemia of lower extremity, Gangrene Instructions Forms: Patient Portal
[2021-02-01] MEDS: LR 1000 ML IV 1,000 ML IV SCH (19:00)
[2021-02-01 19:54] LABS: BASOPHILS # (AUTO) 0.1 X10^3/uL (0.0-0.1); BASOPHILS % (AUTO) 0.9 % (0.2-1.0); EOSINOPHILS # (AUTO) 0.1 x10^3/uL (0.0-0.2); EOSINOPHILS % (AUTO) 0.5 % (0.9-2.9); HEMATOCRIT 30.5 % (36.0-47.0); HEMOGLOBIN 9.9 g/dL (12.0-16.0); LYMPHOCYTES # (AUTO) 1.9 X10^3/uL (1.3-2.9); LYMPHOCYTES % (AUTO) 19.1 % (21.0-51.0); MEAN CORPUSCULAR HEMOGLOBIN 25.2 pg (27.0-34.0); MEAN CORPUSCULAR HGB CONC 32.4 g/dL (33.0-35.0); MEAN CORPUSCULAR VOLUME 77.7 fL (80.0-100.0); MEAN PLATELET VOLUME 9.1 fL (7.4-11.0); MONOCYTES # (AUTO) 0.6 x10^3/uL (0.3-0.8); MONOCYTES % (AUTO) 6.4 % (0.0-13.0); NEUTROPHILS # (AUTO) 7.2 x10^3/uL (2.2-4.8); NEUTROPHILS % (AUTO) 73.1 % (42.0-75.0); PLATELET COUNT 343 X10^3/uL (150.0-450.0); RED BLOOD COUNT 3.93 X10^6/uL (3.5-5.4); RED CELL DISTRIBUTION WIDTH 15.9 % (11.6-16.5); WHITE BLOOD COUNT 9.9 X10^3/uL (3.6-10.0)
[2021-02-01 20:06] LABS: ALANINE AMINOTRANSFERASE 21 Units/L (12-78); ALKALINE PHOSPHATASE 129 Units/L (46-116); ASPARTATE AMINO TRANSFERASE 19 Units/L (15-37); BLOOD UREA NITROGEN 13 mg/dL (7-18); CALCIUM 8.3 mg/dL (8.5-10.1); CARBON DIOXIDE 35.5 mmol/L (21-32); CHLORIDE 92 mmol/L (98-107); COR CA(FOR HYPOALB) 9.9 mg/dL (8.5-10.1); COR NA(FOR HYPERGLY) 133 mmol/L (136-145); CREATININE 0.95 mg/dL (0.55-1.02); SODIUM 130 mmol/L (136-145); TOTAL PROTEIN 6.8 g/dL (6.4-8.2); eGFR NON BLACK RACES > 60 (>60)
[2021-02-01] MEDS ORDERED: K-RIDER 10 MEQ/NS 100 ML 10 MEQ/100 ML BAG IV PRN (20:29)
[2021-02-01] MEDS ORDERED: POTASSIUM CHL 40 MEQ/NS 0.45% 500 ML IV PRN (20:29)
[2021-02-01] MEDS ORDERED: KLOR-CON PO PRN (20:29)
[2021-02-01] MEDS ORDERED: POTASSIUM CHL 60 MEQ/NS 0.45% 500 ML IV PRN (20:29)
[2021-02-01] MEDS ORDERED: MICRO K EXTEN CAP 10 MEQ PO PRN (20:29)
[2021-02-01] MEDS ORDERED: POTASSIUM CHLORIDE LIQ 20 MEQ UDC PO PRN (20:29)
[2021-02-01] MEDS: REQUIP PO SCH (21:42)
--- NOTE | 2021-02-01 22:02 | DR.H&P ---
H&P History & Physical for Day of: H&P Date: 02/01/21 Chief Complaint Chief Complaint: Gangrene right great toe and severe rest pain right foot Allergies Allergies Allergy/AdvReac Type Severity Reaction Status Date / Time No Known Drug Allergies Allergy Verified 09/21/20 10:53 History of Present Illness History of Present Illness: 80-year-old female with significant history of dementia, coronary disease, diabetes, and peripheral vascular disease with ankle brachial indices of 0.15 on the right 020 the left. He failed intervention of the right leg and had significant gangrenous changes the right great toe but refused amputation. She is not able to ambulate. She returned to the emergency room with severe rest pain of the right leg with gangrenous changes of the right great toe and now has agreed to amputation which will be done above the knee. Past Medical History Past Medical History: Coronary Artery Disease, Dementia, Diabetes, GERD, Hypertension and DE Past Surgical History Surgical History: Other Additional Surgical History: Recent peripheral intervention of the right leg as described above. Family History Family Medical History: Diabetes Mellitus Social History Does patient currently use any type of tobacco product: Yes Have you used tobacco products in the last 12 months: Yes Type of Tobacco Use: Cigarettes Packs per day or dips/chews per day: 1/2 pack Does any household member use tobacco: Yes Alcohol Use: None Medications Home Medications: No Known Drug Allergies Allergy (Verified 09/21/20 10:53) Percocet 5 mg tablets one every 6 hours PRN pain Protonix 40 mg daily levothyroxin 25 g by mouth daily Humalog insulin sliding-scale gabapentin 100 mg PO TID Plavix 75 mg by mouth daily amlodipine 5 mg PO Q day zinc sulfate one capsule daily ropinirole 0.5 mg at bedtime Ansell applied to wounds right leg Labs Result Diagrams: 02/01/21 16:50 02/01/21 19:40 Labs: Laboratory WBC 9.9 X10^3/uL (3.6-10.0) 02/01/21 16:50 RBC 3.93 X10^6/uL (3.5-5.4) 02/01/21 16:50 Hgb 9.9 g/dL (12.0-16.0) L 02/01/21 16:50 Hct 30.5 % (36.0-47.0) L 02/01/21 16:50 MCV 77.7 fL (80.0-100.0) L 02/01/21 16:50 MCH 25.2 pg (27.0-34.0) L 02/01/21 16:50 MCHC 32.4 g/dL (33.0-35.0) L 02/01/21 16:50 RDW 15.9 % (11.6-16.5) 02/01/21 16:50 Plt Count 343 X10^3/uL (150.0-450.0) 02/01/21 16:50 MPV 9.1 fL (7.4-11.0) 02/01/21 16:50 Neut % (Auto) 73.1 % (42.0-75.0) 02/01/21 16:50 Lymph % (Auto) 19.1 % (21.0-51.0) L 02/01/21 16:50 [place] % (Auto) 6.4 % (0.0-13.0) 02/01/21 16:50 Eos % (Auto) 0.5 % (0.9-2.9) L 02/01/21 16:50 Baso % (Auto) 0.9 % (0.2-1.0) 02/01/21 16:50 Neut # (Auto) 7.2 x10^3/uL (2.2-4.8) H 02/01/21 16:50 Lymph # (Auto) 1.9 X10^3/uL (1.3-2.9) 02/01/21 16:50 [place] # (Auto) 0.6 x10^3/uL (0.3-0.8) 02/01/21 16:50 Eos # (Auto) 0.1 x10^3/uL (0.0-0.2) 02/01/21 16:50 Baso # (Auto) 0.1 X10^3/uL (0.0-0.1) 02/01/21 16:50 Absolute Nucleated RBC 0.1 /100WBC 02/01/21 16:50 Sodium 130 mmol/L (136-145) L 02/01/21 19:40 Corrected Sodium 133 mmol/L (136-145) L 02/01/21 19:40 Potassium 2.9 mmol/L (3.5-5.1) L* 02/01/21 19:40 Chloride 92 mmol/L (98-107) L 02/01/21 19:40 Carbon Dioxide 35.5 mmol/L (21-32) H 02/01/21 19:40 BUN 13 mg/dL (7-18) 02/01/21 19:40 Creatinine 0.95 mg/dL (0.55-1.02) 02/01/21 19:40 Est GFR (MDRD) Af Amer > 60 (>60) 02/01/21 19:40 Est GFR (MDRD) Non-Af > 60 (>60) 02/01/21 19:40 Glucose 243 mg/dL (65-99) H 02/01/21 19:40 POC Glucose (mg/dL) 292 mg/dL (65-99) H 02/01/21 20:10 Calcium 8.3 mg/dL (8.5-10.1) L 02/01/21 19:40 Corrected Calcium 9.9 mg/dL (8.5-10.1) 02/01/21 19:40 Magnesium 1.7 mg/dL (1.7-2.9) 02/01/21 20:39 Total Bilirubin 0.40 mg/dL (0.2-1.0) 02/01/21 19:40 AST 19 Units/L (15-37) 02/01/21 19:40 ALT 21 Units/L (12-78) 02/01/21 19:40 Alkaline Phosphatase 129 Units/L (46-116) H 02/01/21 19:40 Total Protein 6.8 g/dL (6.4-8.2) 02/01/21 19:40 Albumin 2.0 g/dL (3.4-5.0) L 02/01/21 19:40 Globulin 4.8 g/dL (2.5-4.5) H 02/01/21 19:40 Albumin/Globulin Ratio 0.4 Ratio (1.1-2.1) L 02/01/21 19:40 SARS CoV-2 RNA Rapid CARTER Negative (NEGATIVE) 02/01/21 17:19 Review of Systems Constitutional: denies No Symptoms Reported, See HPI, Fever, Chills, Sweats, Weakness, Malaise and Other Eyes: denies No Symptoms Reported, See HPI, Pain, Vision Change, Conjunctivae Inflammation, Eyelid Inflammation, Redness and Other ENT: denies No Symptoms Reported, See HPI, Ear Pain, Ear Discharge, Nose Pain, Nose Discharge, Nose Congestion, Mouth Pain, Mouth Swelling, Throat Pain, Throat Swelling and Other Respiratory: denies No Symptoms Reported, See HPI, Cough, Dry, Shortness of Breath, Hemoptysis, SOB with Excertion, Pleuritic Pain, Sputum, Wheezing and Other Gastrointestinal: denies No Symptoms Reported, See HPI, Nausea, Vomiting, Abdominal Pain, Diarrhea, Constipation, Melena, Hematochezia and Other Genitourinary: denies No Symptoms Reported, See HPI, Dysuria, Frequency, Incontinence, Hematuria, Retention and Other Musculoskeletal: Foot Pain (Severe rest pain right lower extremity with gangrenous changes right great toe) Skin: denies No Symptoms Reported, See HPI, Rash, Lesions, Jaundice, Bruising, Wound, Ecchymosis and Other Neurological: denies No Symptoms Reported, See HPI, Weakness, Numbness, Incoordination, Change in Speech, Confusion, Seizures and Other Physical Exam Vital Signs: Temperature 98.9 F Pulse Rate 78 Respiratory Rate 20 Blood Pressure [Right Arm] 154/67 Blood Pressure [Left Arm] 151/67 Blood Pressure 100/49 O2 Sat by Pulse Oximetry 95 Oriented: Normal, Person and Place; negative Time and Other Eyes: Normal Ear: Normal Nose: Normal Respiratory: Clear Throughout Cardiovascular: Normal : Normal Auscultation: Bowel Sounds: Normal Palpation: Normal Tenderness: Normal Skin: Normal Psychiatric: Depression and Other (dementia) Mood Description: Angry and Anxious Speech Pattern: Unclear Assessment/Plan (1) Gangrene: Status: Acute Plan: PLAN RIGHT ABOVE KNEE AMPUTATION (2) Hypokalemia: Status: Acute Plan: REPLACE K (3) Hyperglycemia: Status: Acute Plan: SLIDING SCALE INSULIN (4) Critical ischemia of lower extremity: Status: Chronic Plan: ABOVE (5) Dementia: Status: Acute (6) GERD (gastroesophageal reflux disease): Status: Acute Plan: PROTONIX Review H&P Reviewed: Yes Patient was examined?: Yes
[2021-02-01] MEDS: ZOSYN VIAL 3.375 GRAMS 3.375 G in NS 100 ML IV + SPIKE MINIBAG* 100 ML IV SCH (22:27)
[2021-02-01] MEDS: DILAUDID INJ IVP PRN (22:43)
[2021-02-01] MEDS: HumuLIN R SC PRN (22:46)
[2021-02-01] MEDS: MAGNESIUM SULFATE 1 GRAM/100 mL PREMIX 1 GM/100 ML BAG IV PRN (23:00)
[2021-02-02 01:26] VITALS: BMI 28.1
[2021-02-02] MEDS: MAGNESIUM SULFATE 1 GRAM/100 mL PREMIX 1 GM/100 ML BAG IV PRN (01:31)
[2021-02-02] MEDS: ZOSYN VIAL 3.375 GRAMS 3.375 G in NS 100 ML IV + SPIKE MINIBAG* 100 ML IV SCH ×3 (06:33→22:09)
[2021-02-02] MEDS: K-DUR TAB 20 MEQ PO PRN (06:37)
[2021-02-02] MEDS: SYNTHROID 25 mcg TAB PO SCH (06:40)
[2021-02-02] MEDS: HumuLIN R SC PRN (06:42)
[2021-02-02] MEDS: PROTONIX TAB 40 MG PO SCH (08:10)
[2021-02-02] MEDS: LOVENOX INJ 40 MG SYR SC SCH (08:10)
[2021-02-02] MEDS: NORVASC TAB 5 MG PO SCH (08:10)
[2021-02-02] MEDS: DILAUDID INJ IVP PRN ×3 (08:11→21:03)
[2021-02-02] MEDS: LR 1000 ML IV 1,000 ML IV SCH ×2 (08:11→21:02)
[2021-02-02 10:19] LABS: BILIRUBIN,URINE NEGATIVE (NEGATIVE); BLOOD/HEMOGLOBIN,URINE 4+ (NEGATIVE); GLUCOSE, URINE 3+ (NEGATIVE); KETONES,URINE NEGATIVE (NEGATIVE); LEUKOCYTE ESTERASE ,URINE 3+ (NEGATIVE); NITRITES,URINE NEGATIVE (NEGATIVE); PROTEIN,URINE 3+ (NEGATIVE); UROBILINOGEN,URINE NORMAL (NORMAL)
[2021-02-02 10:29] LABS: APPEARANCE,URINE CLOUDY (CLEAR); BACTERIA,URINE 4+ /HPF (NEGATIVE); COLOR,URINE YELLOW (YELLOW); RBC,URINE TNTC /HPF (0-3); SQUAMOUS EPITHELIAL CELL,UR RARE /HPF (NEGATIVE)
--- NOTE | 2021-02-02 13:17 | NOTE.SOAP ---
Soap Note Note for Day of Date of Exam: 02/02/21 Subjective Data Subjective Data: Patient well known to me with severe ischemia both for extremities and failed intervention of the right leg with gangrenous changes of the right great toe and severe rest pain. Patient admitted now for right above knee amputation. Currently needing to correction of electrolytes and continue IV antibiotics. Potassium was 2.6 on admission and she has received multiple rounds of potassium. Pain under better control with IV dilaudid Objective Data Temperature: 99.4 F Pulse Rate: 83 Respiratory Rate: 18 Blood Pressure: 114/43 O2 Sat by Pulse Oximetry: 92 Objective Data: No change in right foot Assessment Assessment: Severely ischemic right leg with gangrene Plan Plan: Continue IV antibiotics, correct electrolytes, plan right above knee amputation on , 02/04/2021
[2021-02-02] MEDS ORDERED: TYLENOL 325 MG TAB PO PRN (15:51)
[2021-02-02] MEDS ORDERED: TYLENOL 500 MG TAB EXTRA STRENGTH PO PRN (15:56)
[2021-02-02] MEDS: CIPRO IV 400 MG PREMIX* 400 MG/200 ML IV.SOLN. IV SCH ×2 (16:04→20:33)
[2021-02-02] MEDS ORDERED: OFIRMEV IV 1000 MG VIAL 500 MG/50 ML VIAL IV PRN (16:14)
[2021-02-02] MEDS: REQUIP PO SCH (20:33)
[2021-02-03] MEDS: LR 1000 ML IV 1,000 ML IV SCH ×2 (00:32→13:52)
[2021-02-03] MEDS: SYNTHROID 25 mcg TAB PO SCH (05:45)
[2021-02-03 06:16] LABS: BLOOD UREA NITROGEN 14 mg/dL (7-18); CALCIUM 7.6 mg/dL (8.5-10.1); CARBON DIOXIDE 30.4 mmol/L (21-32); CHLORIDE 96 mmol/L (98-107); COR NA(FOR HYPERGLY) 131 mmol/L (136-145); CREATININE 0.91 mg/dL (0.55-1.02); SODIUM 131 mmol/L (136-145); eGFR NON BLACK RACES > 60 (>60)
[2021-02-03] MEDS: CIPRO IV 400 MG PREMIX* 400 MG/200 ML IV.SOLN. IV SCH ×2 (08:49→20:17)
[2021-02-03] MEDS: NORVASC TAB 5 MG PO SCH (08:50)
[2021-02-03] MEDS: LOVENOX INJ 40 MG SYR SC SCH (08:50)
[2021-02-03] MEDS: PROTONIX TAB 40 MG PO SCH (08:50)
[2021-02-03] MEDS: DILAUDID INJ IVP PRN ×3 (11:13→20:20)
[2021-02-03] MEDS: ZOSYN VIAL 3.375 GRAMS 3.375 G in NS 100 ML IV + SPIKE MINIBAG* 100 ML IV SCH ×3 (11:30→21:41)
[2021-02-03] MEDS: K-DUR TAB 20 MEQ PO PRN ×2 (16:41→21:54)
[2021-02-03] MEDS: REQUIP PO SCH (20:17)
--- NOTE | 2021-02-03 22:17 | NOTE.SOAP ---
Soap Note Note for Day of Date of Exam: 02/03/21 Subjective Data Subjective Data: Admitted for gangrene right foot with severe rest pain right leg. Not ambulatory. Objective Data Temperature: 98.5 F Pulse Rate: 81 Respiratory Rate: 18 Blood Pressure: 134/61 O2 Sat by Pulse Oximetry: 97 Assessment Assessment: Ischemic right leg with gangrene Plan Plan: right above knee amputation tomorrow.
[2021-02-04] MEDS: LR 1000 ML IV 1,000 ML IV SCH ×4 (00:01→22:52)
[2021-02-04] MEDS: DILAUDID INJ IVP PRN ×4 (04:14→20:35)
[2021-02-04] MEDS: ZOSYN VIAL 3.375 GRAMS 3.375 G in NS 100 ML IV + SPIKE MINIBAG* 100 ML IV SCH ×3 (05:24→21:57)
[2021-02-04] MEDS: SYNTHROID 25 mcg TAB PO SCH (05:39)
[2021-02-04 06:04] LABS: BASOPHILS # (AUTO) 0.1 X10^3/uL (0.0-0.1); EOSINOPHILS # (AUTO) 0.1 x10^3/uL (0.0-0.2); EOSINOPHILS % (AUTO) 1.1 % (0.9-2.9); HEMATOCRIT 26.1 % (36.0-47.0); HEMOGLOBIN 8.5 g/dL (12.0-16.0); LYMPHOCYTES # (AUTO) 1.6 X10^3/uL (1.3-2.9); LYMPHOCYTES % (AUTO) 14.7 % (21.0-51.0); MEAN CORPUSCULAR HEMOGLOBIN 25.4 pg (27.0-34.0); MEAN CORPUSCULAR HGB CONC 32.4 g/dL (33.0-35.0); MEAN CORPUSCULAR VOLUME 78.4 fL (80.0-100.0); MEAN PLATELET VOLUME 9.1 fL (7.4-11.0); MONOCYTES # (AUTO) 0.9 x10^3/uL (0.3-0.8); MONOCYTES % (AUTO) 8.5 % (0.0-13.0); NEUTROPHILS # (AUTO) 8.2 x10^3/uL (2.2-4.8); NEUTROPHILS % (AUTO) 74.7 % (42.0-75.0); PLATELET COUNT 312 X10^3/uL (150.0-450.0); RED BLOOD COUNT 3.33 X10^6/uL (3.5-5.4); RED CELL DISTRIBUTION WIDTH 15.8 % (11.6-16.5)
[2021-02-04 06:11] LABS: ALANINE AMINOTRANSFERASE 14 Units/L (12-78); ALBUMIN 1.5 g/dL (3.4-5.0); ALKALINE PHOSPHATASE 92 Units/L (46-116); ASPARTATE AMINO TRANSFERASE 28 Units/L (15-37); BLOOD UREA NITROGEN 10 mg/dL (7-18); CALCIUM 7.5 mg/dL (8.5-10.1); CARBON DIOXIDE 30.5 mmol/L (21-32); CHLORIDE 98 mmol/L (98-107); COR CA(FOR HYPOALB) 9.5 mg/dL (8.5-10.1); COR NA(FOR HYPERGLY) 133 mmol/L (136-145); CREATININE 0.82 mg/dL (0.55-1.02); SODIUM 132 mmol/L (136-145); TOTAL PROTEIN 5.7 g/dL (6.4-8.2); eGFR NON BLACK RACES > 60 (>60)
[2021-02-04] MEDS ORDERED: NS 1000 ML 1,000 ML ONE (07:03)
[2021-02-04] MEDS ORDERED: ANCEF 1 GRAM IV PREMIX* 1 G/50 ML BAG IV ONE (07:04)
[2021-02-04] MEDS ORDERED: DILAUDID INJ ONE (07:38)
[2021-02-04] MEDS ORDERED: OFIRMEV IV 1000 MG VIAL 1,000 MG/100 ML VIAL IV ONE (07:41)
[2021-02-04] MEDS ORDERED: FENTANYL VIAL INJ 100 mcg ONE (07:41)
[2021-02-04] MEDS ORDERED: REGLAN INJ 10 MG VIAL IVP PRN (08:48)
[2021-02-04] MEDS ORDERED: ZOFRAN INJ 4 MG VIAL IVP PRN (08:48)
[2021-02-04] MEDS ORDERED: BENADRYL INJ 50 MG VIAL IVP PRN (08:48)
[2021-02-04] MEDS ORDERED: BARHEMSYS INJ IVP PRN (08:48)
[2021-02-04] MEDS ORDERED: DILAUDID INJ IVP PRN (08:48)
[2021-02-04] MEDS ORDERED: PHENERGAN INJ 25 MG IM PRN (08:48)
--- NOTE | 2021-02-04 08:57 | OR.IMMED ---
IMMEDIATE POST-OP NOTE Immediate Post-Op Note Pre-Op Diagnosis: gangrene right foot, severe rest pain right leg Post-Op Diagnosis: same Procedure: right below knee amputation, high Description of Procedure: see operaetive summary Surgeon/Trimmer Sorter: Claudia Findings: as above , had planned right above knee amptation but has right femoral ewa in place , high BKA done, good bleeding Specimens Removed: right leg below knee Estimated Blood Loss: < 25 cc Drains: NONE Complications: none Progress Notes: to floor, restart diet , plan to d/c back to SNF tomorrow Condition: Stable Final Diagnosis: as above
[2021-02-04] MEDS ORDERED: EPHEDRINE SULFATE INJ ONE (09:15)
[2021-02-04] MEDS ORDERED: DIPRIVAN VIAL ONE (09:15)
[2021-02-04] MEDS: NORVASC TAB 5 MG PO SCH (10:39)
[2021-02-04] MEDS: CIPRO IV 400 MG PREMIX* 400 MG/200 ML IV.SOLN. IV SCH ×2 (10:39→21:57)
[2021-02-04] MEDS: PROTONIX TAB 40 MG PO SCH (10:39)
[2021-02-04] MEDS: LOVENOX INJ 40 MG SYR SC SCH (11:02)
[2021-02-04] MEDS: PERCOCET TAB 5/325 MG PO PRN (15:22)
--- NOTE | 2021-02-04 15:42 | DR.OPNOTE ---
OP NOTE Pre-Op Diagnosis: gangrenous right foot Post-Op Diagnosis: same Procedure Date Date Of Procedure: 02/04/21 Procedure: This patient was taken to the operating suite and placed in the supine position and general anesthesia induced with an LMA to control the airway. The right was leg prepped and draped in sterile fashion. Timeout for the procedure obtained. A standard dog-leg incision was made approximately 3 finger breaths below the tibial tuberosity with a #15 knife blade. Dissection carried out in the anterior tibial compartment and divided the anterior tibial artery between clamps and tied with 2-0 silk suture ligatures. Dissection c arried through the membrane medial to the fibula and the peroneal vessel divided between clamps and tied with 2-o silk suture ligatures At this point the periosteum of the tibia was elevated as was the periosteum of the fibula. We used Gigli saw to divide the tibia and bone cutter used to divide the fibula. Amputation knife used to complete the amputation. Further bleeding controlled with electrocautery. The 2 flaps were approximated with interrupted 0 Vicryl sutures and the skin closed with skin dacia. Dressing applied. The patient tolerated this well. She was extubated and taken to the PACU in good condition. Anesthesia Comment: General anesthetic with LMA Findings: This patient with known severe peripheral vascular disease with ankle brachial index of 0.15 on the right and 0.2 on the left has failed right leg intervention and has gangrenous toes of the right foot with severe rest pain. I was planning to do the right above knee amputation but she has a femoral ewa in place therefore I converted to a high below knee amputation. She has good bleeding in this area and it should heal. Specimen/Pathology: right leg below knee Type of Fluids Used:: Lactated Ringers EBL: <25 cc Drains/Tubes Placed: None Complications:: none Needle/Sponge Count:: correct Disposition/Condition: Pt. tolerated procedure without difficulty. Extubated in the OR and taken to PACU in stable condition.
[2021-02-04] MEDS: HumuLIN R SC PRN (16:42)
[2021-02-04] MEDS: REQUIP PO SCH (21:57)
[2021-02-05] MEDS: LR 1000 ML IV 1,000 ML IV SCH ×2 (00:50→13:45)
[2021-02-05] MEDS: PERCOCET TAB 5/325 MG PO PRN ×3 (01:11→14:05)
[2021-02-05] MEDS: ZOSYN VIAL 3.375 GRAMS 3.375 G in NS 100 ML IV + SPIKE MINIBAG* 100 ML IV SCH ×2 (05:37→13:58)
[2021-02-05] MEDS: SYNTHROID 25 mcg TAB PO SCH (05:38)
[2021-02-05] MEDS: DILAUDID INJ IVP PRN (06:08)
[2021-02-05] MEDS: CIPRO IV 400 MG PREMIX* 400 MG/200 ML IV.SOLN. IV SCH (08:02)
[2021-02-05] MEDS: PROTONIX TAB 40 MG PO SCH (08:03)
[2021-02-05] MEDS: NORVASC TAB 5 MG PO SCH (08:03)
[2021-02-05] MEDS: LOVENOX INJ 40 MG SYR SC SCH (08:15)
--- NOTE | 2021-02-05 11:29 | PCM.DCPLAN ---
DISCHARGE SUMMARY Admission Date Date of Admission: 02/01/21 Discharge Date Discharge Date: 02/05/21 Admission Diagnoses (1) Gangrene: Status: Acute (2) Hypokalemia: Status: Acute (3) Hyperglycemia: Status: Acute (4) Critical ischemia of lower extremity: Status: Chronic (5) Dementia: Status: Acute (6) GERD (gastroesophageal reflux disease): Status: Acute (7) UTI (urinary tract infection): Status: Acute Discharge Diagnoses Discharge Diagnosis: same , + urinary tract infection Discharge Medications Discharge Medications: Home Medication List ciprofloxacin HCl [Cipro] 500 mg PO BID #14 tab 02/05/21 [Rx] oxycodone-acetaminophen [Percocet] 1 tab PO Q6H PRN #30 tab MDD 6 02/05/21 [Rx] Prescriptions: ciprofloxacin HCl [Cipro] Sabino Taylor oxycodone-acetaminophen [Percocet] Sabino Taylor Hospital Course Vital Signs: Temperature 98.7 F Pulse Rate [Bilateral Radial] 68 Pulse Rate 66 Respiratory Rate 22 Blood Pressure [Right Arm] 95/48 Blood Pressure [Left Arm] 109/55 Blood Pressure 122/60 O2 Sat by Pulse Oximetry 97 Latest Lab Results: Laboratory Last Values WBC 11.0 X10^3/uL (3.6-10.0) H 02/04/21 05:28 RBC 3.33 X10^6/uL (3.5-5.4) L 02/04/21 05:28 Hgb 8.5 g/dL (12.0-16.0) L 02/04/21 05:28 Hct 26.1 % (36.0-47.0) L 02/04/21 05:28 MCV 78.4 fL (80.0-100.0) L 02/04/21 05:28 MCH 25.4 pg (27.0-34.0) L 02/04/21 05:28 MCHC 32.4 g/dL (33.0-35.0) L 02/04/21 05:28 RDW 15.8 % (11.6-16.5) 02/04/21 05:28 Plt Count 312 X10^3/uL (150.0-450.0) 02/04/21 05:28 MPV 9.1 fL (7.4-11.0) 02/04/21 05:28 Neut % (Auto) 74.7 % (42.0-75.0) 02/04/21 05:28 Lymph % (Auto) 14.7 % (21.0-51.0) L 02/04/21 05:28 [place] % (Auto) 8.5 % (0.0-13.0) 02/04/21 05:28 Eos % (Auto) 1.1 % (0.9-2.9) 02/04/21 05:28 Baso % (Auto) 1.0 % (0.2-1.0) 02/04/21 05:28 Neut # (Auto) 8.2 x10^3/uL (2.2-4.8) H 02/04/21 05:28 Lymph # (Auto) 1.6 X10^3/uL (1.3-2.9) 02/04/21 05:28 [place] # (Auto) 0.9 x10^3/uL (0.3-0.8) H 02/04/21 05:28 Eos # (Auto) 0.1 x10^3/uL (0.0-0.2) 02/04/21 05:28 Baso # (Auto) 0.1 X10^3/uL (0.0-0.1) 02/04/21 05:28 Absolute Nucleated RBC 0.0 /100WBC 02/04/21 05:28 Sodium 132 mmol/L (136-145) L 02/04/21 05:28 Corrected Sodium 133 mmol/L (136-145) L 02/04/21 05:28 Potassium 3.9 mmol/L (3.5-5.1) 02/04/21 05:28 Chloride 98 mmol/L (98-107) 02/04/21 05:28 Carbon Dioxide 30.5 mmol/L (21-32) 02/04/21 05:28 BUN 10 mg/dL (7-18) 02/04/21 05:28 Creatinine 0.82 mg/dL (0.55-1.02) 02/04/21 05:28 Est GFR (MDRD) Af Amer > 60 (>60) 02/04/21 05:28 Est GFR (MDRD) Non-Af > 60 (>60) 02/04/21 05:28 Glucose 149 mg/dL (65-99) H 02/04/21 05:28 POC Glucose (mg/dL) 144 mg/dL (65-99) H 02/05/21 05:33 Calcium 7.5 mg/dL (8.5-10.1) L 02/04/21 05:28 Corrected Calcium 9.5 mg/dL (8.5-10.1) 02/04/21 05:28 Magnesium 2.0 mg/dL (1.7-2.9) 02/03/21 05:29 Total Bilirubin 0.30 mg/dL (0.2-1.0) 02/04/21 05:28 AST 28 Units/L (15-37) 02/04/21 05:28 ALT 14 Units/L (12-78) 02/04/21 05:28 Alkaline Phosphatase 92 Units/L (46-116) 02/04/21 05:28 Total Protein 5.7 g/dL (6.4-8.2) L 02/04/21 05:28 Albumin 1.5 g/dL (3.4-5.0) L 02/04/21 05:28 Globulin 4.2 g/dL (2.5-4.5) 02/04/21 05:28 Albumin/Globulin Ratio 0.4 Ratio (1.1-2.1) L 02/04/21 05:28 Specimen Type Catherized urine 02/02/21 09:50 Urine Color Yellow (YELLOW) 02/02/21 09:50 Urine Appearance Cloudy (CLEAR) 02/02/21 09:50 Urine pH 6.0 (5.0 - 8.0) 02/02/21 09:50 Ur Specific [place] 1.015 (1.000-1.030) 02/02/21 09:50 Urine Protein 3+ (NEGATIVE) 02/02/21 09:50 Urine Glucose (UA) 3+ (NEGATIVE) 02/02/21 09:50 Urine Ketones Negative (NEGATIVE) 02/02/21 09:50 Urine Occult Blood 4+ (NEGATIVE) 02/02/21 09:50 Urine Nitrite Negative (NEGATIVE) 02/02/21 09:50 Urine Bilirubin Negative (NEGATIVE) 02/02/21 09:50 Urine Urobilinogen Normal (NORMAL) 09/07/21 09:50 Ur Leukocyte Esterase 3+ (NEGATIVE) 02/02/21 09:50 Urine RBC Tntc /HPF (0-3) A 02/02/21 09:50 Urine WBC Tntc /HPF (0-5) A 02/02/21 09:50 Ur Squamous Epith Cells Rare /HPF (NEGATIVE) 02/02/21 09:50 Urine Bacteria 4+ /HPF (NEGATIVE) 02/02/21 09:50 Ur Culture Indicated? Yes/culture set up 02/02/21 09:50 SARS CoV-2 RNA Rapid CARTER Negative (NEGATIVE) 02/01/21 17:19 Tissue Pathology To follow 02/04/21 08:30 Blood Type O NEGATIVE 02/04/21 08:09 Antibody Screen Negative 02/04/21 08:09 Hospital Course: 80-year-old female with history of dementia and peripheral vascular disease with ankle brachial index of 0.15 on the right and 0.2 on the left. She had vascular intervention of the right leg which ultimately failed, now with gangrenous changes of the right foot. Patient was admitted and underwent right below knee amputation. This has markedly releaved her pain. She will be discharged today on her usual medications plus Percocet 5 mg tablets, one every 6 hours PRN pain, 30. She also had a very dark cloudy urine and will be discharged on PO Cipro 500 mg b.i.d. she will follow up with me in my office and one week. I will change the dressing at that time. She is not ambulatory and will not be fitted for prosthesis. Instructions Instructions: Fall Prevention in the Home, Adult, [id number] Living With an Amputation Gangrene Dementia Caregiver Guide Phantom Limb Pain Stump and Prosthesis Care Dementia, [id number] Leg Amputation, Care After Forms: General Consent Precautions for COVID19 [facility] Patient Portal Social Distancing
[2021-02-05 14:28] VITALS: BP 115/57
== END 2021-02-05 14:28 | disposition home health service (06) | DRG 240 ==
LOC: ER 15:16 → OBS 17:28
PROVIDERS: ADMIT Surgery; ATTEND Surgery
DX: N39.0 Urinary tract infection, site not specified; E87.6 Hypokalemia; K21.9 Gastro-esophageal reflux disease without esophagitis; E11.65 Type 2 diabetes mellitus with hyperglycemia; R26.89 Other abnormalities of gait and mobility; I25.10 Atherosclerotic heart disease of native coronary artery without angina pectoris; I70.221 Atherosclerosis of native arteries of extremities with rest pain, right leg; Z20.822 Contact with and (suspected) exposure to COVID-19; F03.90 Unspecified dementia, unspecified severity, without behavioral disturbance, psychotic disturbance, mood disturbance, and anxiety; I96 Gangrene, not elsewhere classified